=== PATIENT | female | born 1995 | race African-American/Black ===

== ENCOUNTER 2019-08-16 23:36 | Emergency (ER) | payer OTHER ==
[~2019-08-16] VITALS: Ht 154.9 cm; Wt 77.1 kg
[2019-08-17 00:12] VITALS: BP 127/80
--- NOTE | 2019-08-17 00:14 | NUR ---
ED Nurse Note: Patient walked in to ER c/o lower back, and abdomen pain. AAO x4, VSS at this thime. Urine colected sent down.
[2019-08-17] MEDS ORDERED: Phenazopyridine 200mg tab ORAL ONE (00:15)
--- NOTE | 2019-08-17 00:17 | Emergency Room Report ---
History of Present Illness General Chief Complaint: Female Urogenital Problems Source: Patient Present Illness HPI Patient is a 24-year-old female who presents after increased dysuria as well as urinary frequency. She denies any recent antibiotic use. She not been having a fever. She denies any discharge. She had normal menses approximately 2 weeks ago. She had not been taking antibiotics recently. No episodes of vomiting or diarrhea. She denies any flank pain. Allergies: Uncoded Allergies: PINEAPPLES (Allergy, Severe, 08/16/19) TONGUE SWELLING Patient History Past Medical History: see triage record Last Menstrual Period: 08-07-2019 Now: No Reviewed Nursing Documentation: PMH: Agreed; PSxH: Agreed Nursing Documentation-PMH Past Medical History: No Stated History Review of Systems All Other Systems: negative except mentioned in HPI Physical Exam Vital Signs Date Time Temp Pulse Resp B/P (MAP) Pulse Ox O2 Delivery O2 Flow Rate FiO2 08/16/19 23:53 98.2 80 16 127/80 (96) 97 Room Air General Appearance: well appearing, no apparent distress, alert, GCS 15 Head: normocephalic, atraumatic ENT: hearing grossly normal, normal voice Neck: full range of motion, supple Respiratory: normal inspection, lungs clear, normal breath sounds, no rhonchi, no respiratory distress, speaking full sentences Cardiovascular #1: normal inspection, no edema Gastrointestinal: normal inspection, non tender, soft, no mass Genitourinary: no CVA tenderness Musculoskeletal: no calf tenderness Neurologic: normal inspection, alert, oriented x3, responsive, normal gait Psychiatric: normal inspection, mood/affect normal Skin: no rash Medical Decision Making Diagnostic Impression: Primary Impression: Urinary tract infection ER Course Patient is a 24-year-old female presents for increased dysuria. Differential diagnosis include was not limited to urinary tract infection, pyelonephritis, among others. Patient has a benign exam and does not appear to require any imaging or laboratory testing at this time. Patient does not appear to have any evidence of systemic illness at this time. Urinary infection was noted on the urinary testing. Patient states she is recently had a battery of STD testing which is negative. Patient was advised to return if any worsening of condition or other concerns. Labs Test 08/17/19 00:07 Urine Color Brown Urine Appearance Slightly cloudy Urine pH 7 (4.5-8.0) Urine Specific [place] 1.005 (1.005-1.035) Urine Protein 1+ (NEGATIVE) Urine Glucose (UA) Negative (NEGATIVE) Urine Ketones Negative (NEGATIVE) Urine Blood 2+ (NEGATIVE) Urine Nitrite Positive (NEGATIVE) Urine Bilirubin 1+ (NEGATIVE) Urine Ictotest Negative (NEGATIVE) Urine Urobilinogen 4 MG/DL (0.0-1.0) Urine Leukocyte Esterase 2+ (NEGATIVE) Urine RBC 5-10 /HPF (0 - 2) Urine WBC 60-80 /HPF (0 - 2) Urine Squamous Epithelial Cells Many /LPF (NONE/OCC) Urine Bacteria Few /HPF (NONE) Urine HCG, Qualitative Negative (NEGATIVE) Last Vital Signs Date Time Temp Pulse Resp B/P (MAP) Pulse Ox O2 Delivery O2 Flow Rate FiO2 08/17/19 00:12 98.2 16 127/80 97 Room Air 08/16/19 23:53 80 Status: improved Disposition: HOME, SELF-CARE Condition: Stable Scripts Phenazopyridine Hcl* (PYRIDIUM*) 200 Mg Tablet 200 MG ORAL THREE TIMES A DAY, #14 TAB 0 Refills Prov: Colby Cage MD 08/17/19 Nitrofurantoin Monohyd/M-Cryst* (MACROBID 100 MG*) 100 Mg Capsule 100 MG ORAL EVERY 12 HOURS, #14 CAP Prov: Colby Cage MD 08/17/19 Referrals: SCOTTY GRIJALVA,REFERRING (PCP) Colby Cage MD Aug 17, 2019 00:17
[2019-08-17 00:18] LABS: APPEARANCE,URINE SLIGHTLY CLOUDY; BILIRUBIN, URINE 1+ (NEGATIVE); COLOR,URINE BROWN; GLUCOSE, URINE (UA) NEGATIVE (NEGATIVE); KETONES,URINE NEGATIVE (NEGATIVE); LEUKOCYTE ESTERASE ,URINE 2+ (NEGATIVE); NITRITE,URINE POSITIVE (NEGATIVE); PH,URINE 7 (4.5-8.0); PROTEIN,URINE 1+ (NEGATIVE); UROBILINOGEN,URINE 4 MG/DL (0.0-1.0)
[2019-08-17] MEDS ORDERED: PHENAZOPYRIDIN200 MG ORAL (00:43)
[2019-08-17] MEDS ORDERED: NITROFURANTOIN100 M2 ORAL (00:43)
[2019-08-17 00:52] VITALS: BP 127/80
--- NOTE | 2019-08-17 00:53 | NUR ---
ED Nurse Note: Pt cleared by health care Provider for discharge. DC instructions/prescription was given and explained to pt and verbalized understanding of teachings. All medical deviecs such as ID band removed. Pt is AAO x4, ambulatory and left with all personal belongings.
== END 2019-08-17 00:53 | disposition home or self-care (01) ==
LOC: EMR 08-17 00:10
DX: N39.0 Urinary tract infection, site not specified (principal); Z91.018 Allergy to other foods
CPT/HCPCS: 81003; 81025; 87086; 87181; 99283

== ENCOUNTER 2019-09-17 03:36 | Emergency (ER) | payer BC, OTHER ==
[~2019-09-17] VITALS: Ht 154.9 cm; Wt 74.8 kg
[~2019-09-17 03:36] MED LIST: NITROFURANTOIN100 M2 ORAL; PHENAZOPYRIDIN200 MG ORAL
--- NOTE | 2019-09-17 03:54 | Emergency Room Report ---
History of Present Illness General Chief Complaint: Lower Extremity Injury Source: Patient Present Illness HPI This is a 24-year-old female with no past medical history. She presents with chief complaint of left great toe pain. She said that 2 days ago she was playing around with somebody and that person fell and hit his knee directly onto her great toe. There was bleeding. Now it is throbbing in nature. Still hurting. There is some drainage. Pain is 8 out of 10. Worse with walking and palpation. Better with rest. No fever chills. No nausea no vomiting. Denies any other complaint. No other injury. Allergies: Uncoded Allergies: PINEAPPLES (Allergy, Severe, 08/16/19) TONGUE SWELLING Patient History Past Medical History: see triage record, old chart reviewed Past Surgical History: none Pertinent Family History: none Social History: Denies: smoking Last Menstrual Period: 09/03/2019 Now: No Immunizations: other Reviewed Nursing Documentation: PMH: Agreed; PSxH: Agreed Nursing Documentation-PMH Past Medical History: No Stated History Hx Cardiac Problems: No Hx Hypertension: No Hx Pacemaker: No Hx Asthma: No Hx COPD: No Hx Diabetes: No Hx Cancer: No Hx Gastrointestinal Problems: No Hx Dialysis: No History Of Psychiatric Problem: No Hx Neurological Problems: No Hx Cerebrovascular Accident: No Hx Seizures: No Review of Systems Eye: Denies: eye pain, blurred vision ENT: Denies: ear pain, nose congestion, throat swelling Respiratory: Denies: cough, shortness of breath Cardiovascular: Denies: chest pain, palpitations Gastrointestinal: Denies: abdominal pain, diarrhea, nausea, vomiting Musculoskeletal: Reports: joint pain; Denies: back pain Skin: Denies: rash Neurological: Denies: headache, numbness Endocrine: Denies: increased thirst, increased urine Hematologic/Lymphatic: Denies: easy bruising All Other Systems: negative except mentioned in HPI Physical Exam Vital Signs Date Time Temp Pulse Resp B/P (MAP) Pulse Ox O2 Delivery O2 Flow Rate FiO2 09/17/19 03:38 97.7 90 20 124/79 (94) 97 Room Air Vitals normal Sp02 EP Interpretation: reviewed, normal General Appearance: well appearing, no apparent distress, alert Head: normocephalic, atraumatic Eyes: bilateral eye PERRL, bilateral eye EOMI ENT: hearing grossly normal, normal pharynx Neck: full range of motion, supple, no meningismus Respiratory: chest non-tender, lungs clear, normal breath sounds Cardiovascular #1: regular rate, rhythm, no murmur Gastrointestinal: normal bowel sounds, non tender, no mass, no organomegaly, no bruit, non-distended Musculoskeletal: back normal, normal range of motion, gait/station normal, other - Left great toe: She has acrylic nails on. At the base there is a old abrasion or laceration. There is some edema. Very tender to palpation. There is serous sanguinous drainage. Psychiatric: mood/affect normal Medical Decision Making Diagnostic Impression: Primary Impression: Crushing injury of toe of left foot Qualified Codes: S97.102A - Crushing injury of unspecified left toe(s), initial encounter ER Course Patient presents with crush injury to the great toe. I suspect that she has nailbed injury because of the bleeding and pain. No fracture. Because of the site, will put on antibiotics. Will discharge home. Other X-Ray Diagnostic Results Other X-Ray Diagnostic Results : X-Ray ordered: Left toe x-rays # of Views/Limited Vs Complete: 3 View Indication: Pain EP Interpretation: Yes Interpretation: no dislocation, no soft tissue swelling, no fractures Impression: No acute disease Electronically Signed by: Rigoberto Garza MD Last Vital Signs Date Time Temp Pulse Resp B/P (MAP) Pulse Ox O2 Delivery O2 Flow Rate FiO2 09/17/19 03:38 97.7 90 20 124/79 (94) 97 Room Air Status: improved Disposition: HOME, SELF-CARE Condition: Stable Scripts Ibuprofen* (MOTRIN*) 600 Mg Tablet 600 MG ORAL THREE TIMES A DAY, #30 TAB 0 Refills Prov: Rigoberto Garza MD 09/17/19 Doxycycline Monohydrate* (DOXYCYCLINE MONOHYDRATE*) 100 Mg Capsule 100 MG ORAL Q12H, #14 CAP 0 Refills Prov: Rigoberto Garza MD 09/17/19 Additional Instructions: Elevate foot. Ice pack to area. Keep it clean. Follow-up with doctor in 7 days. Return if worse. Rigoberto Garza MD Sep 17, 2019 03:54
[2019-09-17] MEDS ORDERED: HYDROcodone/Acetamin 5/325 tab ORAL ONE (04:00)
[2019-09-17] MEDS ORDERED: IBUPROFEN600 MG ORAL (04:21)
[2019-09-17] MEDS ORDERED: DOXYCYCLINE MO100 MG ORAL (04:21)
[2019-09-17 04:25] VITALS: BP 120/84
--- NOTE | 2019-09-17 11:42 | Diagnostic Imaging Report ---
Indication: Pain in distal left great toe after trauma Technique: 3 views of the left great toe Comparison: none Findings: No acute fractures. No dislocations. Joint spaces are preserved. Impression: Negative
== END 2019-09-17 04:25 | disposition home or self-care (01) ==
LOC: EMR 03:59
DX: S97.102A Crushing injury of unspecified left toe(s), initial encounter (principal); Y93.83 Activity, rough housing and horseplay
CPT/HCPCS: 99283

== ENCOUNTER → 2019-10-14 | Emergency (ER) | payer BC, OTHER ==
[~2019-10-14] VITALS: Ht 154.9 cm; Wt 77.1 kg
[~2019-10-14] MED LIST changes: +CEPHALEXIN500 MG ORAL; +DOXYCYCLINE MO100 MG ORAL; +IBUPROFEN600 MG ORAL; +PRENATAL VITAM1 EA10 PO; +TYLENOL EXTRA500 MG ORAL
[2019-10-14 17:39] VITALS: BP 107/74
--- NOTE | 2019-10-14 17:45 | NUR ---
ED Nurse Note: pt. ambulated to ed came with abscess on her tail bone for 2 days with 10/10 pain scale. Pt denied bleeding on site. Placed on bed and gown.
--- NOTE | 2019-10-14 17:50 | Emergency Room Report ---
History of Present Illness General Chief Complaint: Skin Rash/Abscess Source: Patient Present Illness HPI 24-year-old female with no significant past medical history who reports being 6 weeks with no abdominal pain, no vaginal discharge or bleeding here complaining of a semi-painful mass perianal area x3 days. Denies any pus drainage, rating pain 5 out of 10 without radiation. Denies fever and chills at this time. Denies constipation, blood in stool, and other associated symptoms. Has not taken medication for symptom relief. Denies chest pain, shortness of breath, palpitation, no other associated symptoms. Reports that has an upcoming appointment with LIVING SKILLS ADVISOR next week. Has not yet started her vitamins that she just found out that she is 6 weeks . Denies tobacco smoke, alcohol intake. Allergies: Uncoded Allergies: PINEAPPLES (Allergy, Severe, 08/16/19) TONGUE SWELLING Patient History Past Medical History: see triage record Past Surgical History: unable to obtain Pertinent Family History: none Now: Yes Immunizations: UTD Reviewed Nursing Documentation: PMH: Agreed; PSxH: Agreed Nursing Documentation-PMH Past Medical History: No History, Except For Hx Cardiac Problems: No Hx Hypertension: No Hx Pacemaker: No Hx Asthma: Yes Hx COPD: No Hx Diabetes: No Hx Cancer: No Hx Gastrointestinal Problems: No Hx Dialysis: No Hx Neurological Problems: No Hx Cerebrovascular Accident: No Hx Seizures: No Review of Systems All Other Systems: negative except mentioned in HPI Physical Exam Vital Signs Date Time Temp Pulse Resp B/P (MAP) Pulse Ox O2 Delivery O2 Flow Rate FiO2 10/14/19 17:30 98.1 80 17 106/74 (85) 99 Room Air Sp02 EP Interpretation: reviewed, normal General Appearance: no apparent distress, alert, GCS 15, non-toxic Head: normocephalic, atraumatic Eyes: bilateral eye normal inspection, bilateral eye PERRL ENT: hearing grossly normal, normal pharynx, no angioedema, normal voice Neck: full range of motion, supple, thyroid normal, no meningismus, supple/symm /no masses Respiratory: chest non-tender, lungs clear, normal breath sounds, no rhonchi, no retraction, no wheezing, speaking full sentences Cardiovascular #1: regular rate, rhythm, no edema, no murmur Gastrointestinal: normal bowel sounds, non tender, soft, no mass, non-distended , no guarding, no rebound Rectal: other - Tam cyst noted without any pus drainage, hardened Genitourinary: no CVA tenderness Musculoskeletal: back normal Neurologic: alert, motor strength/tone normal, oriented x3, sensory intact, responsive, speech normal Psychiatric: judgement/insight normal Skin: no rash Lymphatic: no adenopathy Medical Decision Making PA Attestation All diagnoses and treatment plans were reviewed and discussed with my supervising physician Dr. Du Diagnostic Impression: Primary Impression: Pilonidal cyst Additional Impression: ER Course 24-year-old female with no significant past medical history who reports being 6 weeks with no abdominal pain, no vaginal discharge or bleeding here complaining of a semi-painful mass perianal area x3 days. Denies any pus drainage, rating pain 5 out of 10 without radiation. Denies fever and chills at this time. Denies constipation, blood in stool, and other associated symptoms. Has not taken medication for symptom relief. Denies chest pain, shortness of breath, palpitation, no other associated symptoms. Reports that has an upcoming appointment with LIVING SKILLS ADVISOR next week. Has not yet started her vitamins that she just found out that she is 6 weeks . Denies tobacco smoke, alcohol intake. Ddx considered but are not limited to : pilonidal cyst, abscess, cellulitis, superficial infection, Vital signs: are WNL, pt. is afebrile H&PE are most consistent with: Pilonidal cyst ORDERS: Keflex, Tylenol ED INTERVENTIONS: None required at this time. DISCHARGE: At this time pt. is stable for d/c to home. Will provide printed patient care instructions, and any necessary prescriptions. Care plan and follow up instructions have been discussed with the patient prior to discharge. At this time no incision and drainage is needed as it is a small cyst and to be treated with antibiotics which is safe to take during and Tylenol. Advised patient to return to the emergency room with fever and chills, increase in size of the cyst as well as pus drainage. Patient to follow-up with LIVING SKILLS ADVISOR. I wrote a prescription for vitamins for patient to start. Last Vital Signs Date Time Temp Pulse Resp B/P (MAP) Pulse Ox O2 Delivery O2 Flow Rate FiO2 10/14/19 17:39 98.1 68 20 107/74 99 Room Air Disposition: HOME, SELF-CARE Condition: Stable Scripts No.137/Iron/Folic Acd ( Vitamin Tablet) 1 Each Tablet 1 EACH PO DAILY, #30 TAB Prov: Denver Lawton 10/14/19 Acetaminophen* (TYLENOL EXTRA STRENGTH*) 500 Mg Tablet 2 TAB ORAL Q8H PRN for Prn Headache/Temp > 101, #30 TAB 0 Refills Prov: Denver Lawton 10/14/19 Cephalexin* (KEFLEX*) 500 Mg Capsule 500 MG ORAL EVERY 6 HOURS for 7 Days, #28 CAP Prov: Denver Lawton 10/14/19 Patient Instructions: Pilonidal Cyst Additional Instructions: Take medication as directed, at this time the cyst does not need to be drained as it is hard and small antibiotic should be taking, avoid straining, if worsening symptoms such as increased swelling in the area, pus drainage return to the emergency room for incision and incision and drainage of the abscess formation. Start taking her vitamins, follow-up with your LIVING SKILLS ADVISOR Denver Lawton Oct 14, 2019 17:50
[2019-10-14 17:56] VITALS: BP 107/74
--- NOTE | 2019-10-14 17:56 | NUR ---
ER DISCHARGE NOTE: Pt is cleared to be discharge per ERMD,. Pt is AOx4, on RA, VSS. pt was given dc and prescription instructions, pt was able to verbalize understanding, pt id band removed. pt is able to ambulate with steady gait. Pt left ER with all belongings.
== END | disposition home or self-care (01) ==
LOC: EMR 17:45
DX: O26.891 Other specified pregnancy related conditions, first trimester (principal); L05.91 Pilonidal cyst without abscess; Z3A.01 Less than 8 weeks gestation of pregnancy; Z91.018 Allergy to other foods
CPT/HCPCS: 99282

== ENCOUNTER 2019-11-12 02:34 | Inpatient (IN) | payer BC, OTHER ==
[~2019-11-12] VITALS: Ht 154.9 cm; Wt 81.6 kg
[2019-11-12] VITALS (7 sets, daily range): BP systolic 103–134; BP diastolic 56–90
[2019-11-12] MEDS ORDERED: Morphine Sulfate 2mg/ml Inj(IV/IM USE ONLY) IVP ONE (03:15)
--- NOTE | 2019-11-12 03:15 | NUR ---
ER Nurse Note: Pt walked in c/o stomach pain, n/v/d, for few days. Pt stated she had an etopic pregnany and now she is having blood clots. Pt denies chest pain, shortness of breath. RT AC IV established by second RN; patent and blood collected. Pt unable to urinate; will ask again. All safety measures met; will continue to montior.
--- NOTE | 2019-11-12 03:15 | Emergency Room Report ---
History of Present Illness General Chief Complaint: Abdominal Pain Source: Patient Present Illness HPI Disclaimer: Please note that this report is being documented using DRAGON technology. This can lead to erroneous entry secondary to incorrect interpretation by the dictating instrument. HPI: 24-year-old G1, P0 female presents for evaluation abdominal pain and bleeding. Symptoms began yesterday. She states last week she was seen her OB/ [facility]SP[facility]ER VENDOR when diagnosed with a blighted ovum . She was scheduled to return 1 week later (tomorrow) for reevaluation and repeat blood testing. Yesterday afternoon she noted some spotting which developed into lower pelvic cramping and now diffuse abdominal bleeding. She denies lightheadedness, chest pain, shortness of breath or near syncope. No other medical history reported. Denies dysuria hematuria, fever, chest pain, shortness of breath, vomiting. Reports some diarrhea. PMH: Denies PSH: Denies Allergies: Denies Social Hx: Denies Allergies: Uncoded Allergies: PINEAPPLES (Allergy, Severe, 08/16/19) TONGUE SWELLING Patient History Now: No Nursing Documentation-PMH Hx Cardiac Problems: No Hx Hypertension: No Hx Pacemaker: No Hx Asthma: Yes Hx COPD: No Hx Diabetes: No Hx Cancer: No Hx Gastrointestinal Problems: No Hx Dialysis: No Hx Neurological Problems: No Hx Cerebrovascular Accident: No Hx Seizures: No Review of Systems All Other Systems: negative except mentioned in HPI Physical Exam Vital Signs Date Time Temp Pulse Resp B/P (MAP) Pulse Ox O2 Delivery O2 Flow Rate FiO2 11/12/19 02:55 97.7 86 18 113/73 (86) 96 Room Air General: Awake and alert, no acute distress HEENT: NC/AT. EOMI. Cardiovascular: RRR. S1 and S2 normal. No murmur appreciated Resp: Normal work of breathing. No cough, wheezing or crackles appreciated Abdomen: Abdomen is soft, nondistended. Tender palpation in the lower pelvis and suprapubic region Skin: Intact. No abrasions, laceration or rash over the exposed skin MSK: Normal tone and bulk. Moving all extremities. No obvious deformity. Neuro: Awake and alert. Mentating appropriately. Medical Decision Making Diagnostic Impression: Primary Impression: Inevitable ER Course 24-year-old G1, P0 female presents for evaluation of possible miscarriage planing of vaginal bleeding and worsening abdominal pain in the setting of a blighted ovum . She appears stable at this time but will obtain broad labs including type and screen and possible transfusion. Will obtain an ultrasound of the pelvis. IV fluids, pain medication, antiemetics ordered Laboratory Tests Test 11/12/19 04:14 White Blood Count 7.3 K/UL (4.8-10.8) Red Blood Count 4.61 M/UL (4.20-5.40) Hemoglobin 12.2 G/DL (12.0-16.0) Hematocrit 36.9 % (37.0-47.0) L Mean Corpuscular Volume 80 FL (80-99) Mean Corpuscular Hemoglobin 26.5 PG (27.0-31.0) L Mean Corpuscular Hemoglobin Concent 33.1 G/DL (32.0-36.0) Red Cell Distribution Width 12.4 % (11.6-14.8) Platelet Count 292 K/UL (150-450) Mean Platelet Volume 8.2 FL (6.5-10.1) Neutrophils (%) (Auto) 59.9 % (45.0-75.0) Lymphocytes (%) (Auto) 28.2 % (20.0-45.0) Monocytes (%) (Auto) 7.7 % (1.0-10.0) Eosinophils (%) (Auto) 3.5 % (0.0-3.0) H Basophils (%) (Auto) 0.8 % (0.0-2.0) Sodium Level 138 MMOL/L (136-145) Potassium Level 3.9 MMOL/L (3.5-5.1) Chloride Level 104 MMOL/L (98-107) Carbon Dioxide Level 23 MMOL/L (21-32) Anion Gap 11 mmol/L (5-15) Blood Urea Nitrogen 11 mg/dL (7-18) Creatinine 0.7 MG/DL (0.55-1.30) Estimate Glomerular Filtration Rate > 60 mL/min (>60) Glucose Level 98 MG/DL (74-106) Calcium Level 8.9 MG/DL (8.5-10.1) Total Bilirubin 0.1 MG/DL (0.2-1.0) L Aspartate Amino Transferase (AST) 17 U/L (15-37) Alanine Aminotransferase (ALT) 23 U/L (12-78) Alkaline Phosphatase 66 U/L (46-116) Total Protein 8.4 G/DL (6.4-8.2) H Albumin 3.3 G/DL (3.4-5.0) L Globulin 5.1 g/dL Albumin/Globulin Ratio 0.6 (1.0-2.7) L Lipase 147 U/L (73-393) Human Chorionic Gonadotropin, Quant 4792 mIU/mL (1-6) H Reevaluation Time: 05:50 Last Vital Signs Date Time Temp Pulse Resp B/P (MAP) Pulse Ox O2 Delivery O2 Flow Rate FiO2 11/12/19 02:55 97.7 86 18 113/73 (86) 96 Room Air Reevaluation Impression Labs show stable hemoglobin at 12.2 with normal MCV. Chemistry unremarkable. hCG quant 4700. No prior for comparison. Urinalysis pending. Patient underwent ultrasound. Tech interpretation showed no gestational sac but reported trace products of conception that appear to be passing. Consistent with ongoing spontaneous . Preliminary radiology interpretation shows no intrauterine or retained products of conception and trace fluid in the lower uterine endometrial cavity likely representing clot versus debris. Patient was noted to have ongoing bleeding during the exam and felt lightheaded. We will continue IV fluids. She is complaining of increased pain. Will provide more pain medication. Patient is Rh negative. Will give RhoGam and monitor in the emergency department for improvement. If there is no significant improvement plan to admit. Signed out to oncoming provider pending RhoGam administration and reevaluation. Disposition: ADMITTED INPATIENT Condition: Serious Referrals: NOT CHOSEN IPA/,REFERRING (PCP) Dennys Du MD Nov 12, 2019 03:15
[2019-11-12 04:13] LABS: BILIRUBIN, URINE NEGATIVE (NEGATIVE); GLUCOSE, URINE (UA) NEGATIVE (NEGATIVE); LEUKOCYTE ESTERASE ,URINE NEGATIVE (NEGATIVE); NITRITE,URINE NEGATIVE (NEGATIVE); UROBILINOGEN,URINE NORMAL MG/DL (0.0-1.0)
[2019-11-12 04:23] LABS: BASOPHILS % (AUTO) 0.8 % (0.0-2.0); EOSINOPHILS % (AUTO) 3.5 % (0.0-3.0); HEMATOCRIT 36.9 % (37.0-47.0); HEMOGLOBIN 12.2 G/DL (12.0-16.0); LYMPHOCYTES % (AUTO) 28.2 % (20.0-45.0); MEAN CORPUSCULAR VOLUME 80 FL (80-99); MONOCYTES % (AUTO) 7.7 % (1.0-10.0); NEUTROPHILS % (AUTO) 59.9 % (45.0-75.0); PLATELET COUNT 292 K/UL (150-450); RED BLOOD COUNT 4.61 M/UL (4.20-5.40); RED CELL DISTRIBUTION WIDTH 12.4 % (11.6-14.8); WHITE BLOOD COUNT 7.3 K/UL (4.8-10.8)
[2019-11-12 04:25] LABS: ANION GAP 11 mmol/L (5-15); BLOOD UREA NITROGEN 11 mg/dL (7-18); CALCIUM 8.9 MG/DL (8.5-10.1); CARBON DIOXIDE 23 MMOL/L (21-32); CHLORIDE 104 MMOL/L (98-107); CREATININE 0.7 MG/DL (0.55-1.30); POTASSIUM 3.9 MMOL/L (3.5-5.1); SODIUM 138 MMOL/L (136-145)
[2019-11-12 04:30] LABS: ALANINE AMINOTRANSFERASE 23 U/L (12-78); ALBUMIN 3.3 G/DL (3.4-5.0); ALBUMIN/GLOBULIN RATIO 0.6 (1.0-2.7); ALKALINE PHOSPHATASE 66 U/L (46-116); ASPARTATE AMINO TRANSFERASE 17 U/L (15-37); BILIRUBIN,TOTAL 0.1 MG/DL (0.2-1.0)
--- NOTE | 2019-11-12 05:18 | NUR ---
ER Nurse Note: Pt VSS, no signs of distress, RA, abulatory. Pt taken to US.
--- NOTE | 2019-11-12 05:22 | Diagnostic Imaging Report ---
Indication: Pelvic bleeding, pelvic pain, patient Technique: Transabdominal and transvaginal images of the pelvis. Exam prematurely terminated due to patient pain Comparison: none Findings: Uterus measures 9.8 cm length by 5.3 cm AP. The endometrium is somewhat heterogeneous and thickened, with some hypoechoic material in the lower uterine segment endometrium, but no discrete gestational sac is demonstrated. The myometrium is unremarkable. Neither ovary could be visualized. No free cul-de-sac fluid Impression: No gestational sac demonstrated. Endometrial thickening and heterogeneously could indicate normal findings versus retained products of conception in the setting of spontaneous . Other possibilities include very early , ectopic Limited exam, as described This agrees with the preliminary interpretation provided overnight by [facility] teleradiology service.
[2019-11-12] MEDS ORDERED: Morphine Sulfate 4mg/ml Inj (IV USE ONLY) IVP ONE (06:00)
[2019-11-12] MEDS ORDERED: RHO (D) Immune Globulin 1500 Units IV SCH (06:00)
[2019-11-12 06:02] LABS: COLOR,URINE RED; KETONES,URINE NEGATIVE (NEGATIVE); PH,URINE 7 (4.5-8.0); PROTEIN,URINE 4+ (NEGATIVE)
[2019-11-12 06:05] LABS: APPEARANCE,URINE TURBID
--- NOTE | 2019-11-12 06:06 | NUR ---
ER Nurse Note: Urine sent; awaiting results. Morphine given for pain. Fluids infusing; tolerating well. Spoke with Leanne at pipeline for RhoGam, RhoGam is not in pxyis. Per ERMD, it is okay to wait until main pharmacy is open for med to be administed. Report given to ORLIN Story for continuty of care.
--- NOTE | 2019-11-12 07:09 | NUR ---
HAND-OFF: Report given to ORLIN Kaur.
--- NOTE | 2019-11-12 07:12 | NUR ---
ED Nurse Note: Blood bank called and no answered. Will contact again.
[2019-11-12] MEDS ORDERED: RHO (D) Immune Globulin 1500 Units IM ONE (07:45)
--- NOTE | 2019-11-12 07:54 | NUR ---
ED Nurse Note: Spoke to Lacy from lab, she said she will call ED when rhogam is ready.
--- NOTE | 2019-11-12 08:10 | NUR ---
ED Nurse Note: Pt is Rh +. ERMD made aware. no Rhogam is needed at this time. PT made aware.
[2019-11-12] MEDS ORDERED: Ketorolac 30mg Inj ONE (08:13)
[2019-11-12] MEDS ORDERED: Ketorolac 30mg Inj IV ONE (08:15)
--- NOTE | 2019-11-12 08:50 | NUR ---
ED Nurse Note: pelvic exam being performed at bedside by ERMD and RN at bedside.
[2019-11-12] MEDS ORDERED: Misoprostol 100mcg tab MISC ONE (09:45)
--- NOTE | 2019-11-12 11:20 | NUR ---
ED Nurse Note: report given to ORLIN Joshi from Med/Surg
--- NOTE | 2019-11-12 11:50 | NUR ---
ED Nurse Note: PT brought up to MED/SURG floor accompanied by office machine technician in stable condition. IV site intact (R AC) . Belonging list signed off
--- NOTE | 2019-11-12 11:59 | NUR ---
NURSE NOTES: Patient arrived on floor, AOX4. IV intact and patent. Patient belonging inventoried and signed.
--- NOTE | 2019-11-12 12:32 | NUR ---
NURSE NOTES: Call placed to Dr Millard for admission orders, awaiting return call.
--- NOTE | 2019-11-12 13:04 | NUR ---
NURSE NOTES: Message left with MD Faustin for admission orders.
--- NOTE | 2019-11-12 14:31 | Consultation ---
History of Present Illness General Chief Complaint: Abdominal Pain Present Illness Allergies: Uncoded Allergies: PINEAPPLES (Allergy, Severe, 08/16/19) TONGUE SWELLING Medication History Scheduled Cephalexin* (Keflex*), 500 MG ORAL EVERY 6 HOURS Doxycycline Monohydrate* (Doxycycline Monohydrate*), 100 MG ORAL Q12H Ibuprofen* (Motrin*), 600 MG ORAL THREE TIMES A DAY Nitrofurantoin Monohyd/M-Cryst* (Macrobid 100 Mg*), 100 MG ORAL EVERY 12 HOURS Phenazopyridine Hcl* (Pyridium*), 200 MG ORAL THREE TIMES A DAY No.137/Iron/Folic Acd ( Vitamin Tablet), 1 EACH PO DAILY Scheduled PRN Acetaminophen* (Tylenol Extra Strength*), 2 TAB ORAL Q8H PRN for Prn Headache/ Temp > 101 Patient History Healthcare decision maker Resuscitation status Full Code Advanced Directive on File Physical Exam Last 24 Hour Vital Signs Date Time Temp Pulse Resp B/P (MAP) Pulse Ox O2 Delivery O2 Flow Rate FiO2 11/12/19 13:27 97.7 75 20 103/66 (78) 96 11/12/19 12:35 Room Air 11/12/19 11:58 98.0 86 19 116/63 98 Room Air 11/12/19 10:15 97.9 81 19 108/70 98 Room Air 11/12/19 07:41 98.0 85 17 112/70 97 Room Air 11/12/19 05:17 97.7 82 16 118/70 97 Room Air 11/12/19 03:53 97.7 11/12/19 03:13 97.7 86 18 113/73 96 Room Air 11/12/19 03:13 86 18 Room Air 11/12/19 02:55 97.7 86 18 113/73 (86) 96 Room Air Intake and Output 11/11/19 11/12/19 19:00 07:00 Intake Total 2000 ml Balance 2000 ml IV Total 2000 ml Laboratory Tests Test 11/12/19 04:14 11/12/19 05:55 White Blood Count 7.3 K/UL (4.8-10.8) Red Blood Count 4.61 M/UL (4.20-5.40) Hemoglobin 12.2 G/DL (12.0-16.0) Hematocrit 36.9 % (37.0-47.0) L Mean Corpuscular Volume 80 FL (80-99) Mean Corpuscular Hemoglobin 26.5 PG (27.0-31.0) L Mean Corpuscular Hemoglobin Concent 33.1 G/DL (32.0-36.0) Red Cell Distribution Width 12.4 % (11.6-14.8) Platelet Count 292 K/UL (150-450) Mean Platelet Volume 8.2 FL (6.5-10.1) Neutrophils (%) (Auto) 59.9 % (45.0-75.0) Lymphocytes (%) (Auto) 28.2 % (20.0-45.0) Monocytes (%) (Auto) 7.7 % (1.0-10.0) Eosinophils (%) (Auto) 3.5 % (0.0-3.0) H Basophils (%) (Auto) 0.8 % (0.0-2.0) Sodium Level 138 MMOL/L (136-145) Potassium Level 3.9 MMOL/L (3.5-5.1) Chloride Level 104 MMOL/L (98-107) Carbon Dioxide Level 23 MMOL/L (21-32) Anion Gap 11 mmol/L (5-15) Blood Urea Nitrogen 11 mg/dL (7-18) Creatinine 0.7 MG/DL (0.55-1.30) Estimat Glomerular Filtration Rate > 60 mL/min (>60) Glucose Level 98 MG/DL (74-106) Calcium Level 8.9 MG/DL (8.5-10.1) Total Bilirubin 0.1 MG/DL (0.2-1.0) L Aspartate Amino Transf (AST/SGOT) 17 U/L (15-37) Alanine Aminotransferase (ALT/SGPT) 23 U/L (12-78) Alkaline Phosphatase 66 U/L (46-116) Total Protein 8.4 G/DL (6.4-8.2) H Albumin 3.3 G/DL (3.4-5.0) L Globulin 5.1 g/dL Albumin/Globulin Ratio 0.6 (1.0-2.7) L Lipase 147 U/L (73-393) Human Chorionic Gonadotropin, Quant 4792 mIU/mL (1-6) H Urine Color Red Urine Appearance Turbid Urine pH 7 (4.5-8.0) Urine Specific Rayle 1.010 (1.005-1.035) Urine Protein 4+ (NEGATIVE) H Urine Glucose (UA) Negative (NEGATIVE) Urine Ketones Negative (NEGATIVE) Urine Blood 5+ (NEGATIVE) H Urine Nitrite Negative (NEGATIVE) Urine Bilirubin Negative (NEGATIVE) Urine Urobilinogen Normal MG/DL (0.0-1.0) Urine Leukocyte Esterase Negative (NEGATIVE) Urine RBC Tntc /HPF (0 - 2) H Urine WBC 0-2 /HPF (0 - 2) Urine Squamous Epithelial Cells None /LPF (NONE/OCC) Urine Bacteria Few /HPF (NONE) Height (Feet): 5 Height (Inches): 1.00 Weight (Pounds): 173 Medications Current Medications Medications (Trade) Dose Ordered Sig/Jozef Route PRN Reason Start Time Stop Time Status Last Admin Dose Admin Acetaminophen (Tylenol) 650 mg Q4H PRN ORAL Mild Pain/Temp > 100.5 11/12/19 14:00 12/12/19 13:59 Assessment/Plan Assessment/Plan: Hematology Consultation REAlberto MD: Nenita Aggarwal RFC: Anemia and incomplete miscarriage DOS: 11/13/2019 ID: 24-year-old G1, P0 female presents for evaluation abdominal pain and bleeding. Symptoms began yesterday. 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 She was scheduled to return 1 week later (tomorrow) for reevaluation and repeat blood testing. Yesterday afternoon she noted some spotting which developed into lower pelvic cramping and now diffuse abdominal bleeding. She denies lightheadedness, chest pain, shortness of breath or near syncope. No other medical history reported. Denies dysuria hematuria, fever, chest pain, shortness of breath, vomiting. Reports some diarrhea. Seen by Dr. Scott urogynecology physician, and patient at this time declines further management PMH: Denies PSH: Denies Allergies: Denies Social Hx: Denies Allergies: PINEAPPLES (Allergy, Severe, 08/16/19) TONGUE SWELLING Now: No Nursing Documentation-PMH Hx Cardiac Problems: No Hx Hypertension: No Hx Pacemaker: No Hx Asthma: Yes Hx COPD: No Hx Diabetes: No Hx Cancer: No Hx Gastrointestinal Problems: No Hx Dialysis: No Hx Neurological Problems: No Hx Cerebrovascular Accident: No Hx Seizures: No ROS: Constitutional: No fever, no chills, no night sweats, no fatigue Skin: No rashes, lumps, itchiness, dryness HEENT: No GUIDRY, ear ache, visual changes, double vision, nosebleeds, sore throat, lumps, swollen glands Breasts: No lumps, pain, discharge Pulmonary: No cough, sputum, shortness of breath, coughing up blood, hemoptysis Cardiovascular: No chest pain, tightness, palpitations, syncope, claudication, orthopnea, PND GI: No nausea, vomiting, diarrhea, melena, hematochezia, change in appetite, abdominal pain : No dysuria, frequency, urgency, urinary incontinence, foamy urine Musculoskeletal: No joint swelling or muscle pain, trauma, back pain Neurologic: No dizziness, fainting, seizures, changes in smell or taste Psychiatric: No nervousness, stress, or depression, anxiety, hallucinations Endocrine: No weight change, heat or cold intolerance, tremor, insomnia Physical Exam General Appearance: A+O x3, NAD HEENT: normocephalic, atraumatic Neck: non-tender, normal alignment Respiratory/Chest: chest wall non-tender, lungs clear Cardiovascular/Chest: normal peripheral pulses, normal rate Abdomen: normal bowel sounds, non tender Extremities: normal range of motion Labs: noted Imaging: reviewed Assessment and Recs: # Anemia of chronic disease due to underlying chronic medical issues, multifactorial v Gi bleed --> Anemia workup has been ordered, rule out gi bleed --> No evidence of hemolysis is noted, peripheral smear has been reviewed. --> Hgb goal >7. Transfuse prn. --> Epogen or iron at this time is not particularly indicated --> Medications have been reviewed --> low threshold for gi evaluation in case has occult + # Blighted ovum with incomplete miscarraige --> as per urogynecology physician recs Dr. Scott # Inevitable --> supportive/expectant management # Vaginal bleeding and worsening abdominal pain in the setting of a blighted ovum . # Dehydration given ivf Appreciate consultation and dw Inder Boothe MD Nov 12, 2019 14:31
--- NOTE | 2019-11-12 16:53 | NUR ---
NURSE NOTES: Patient states she had moderate bleeding with clots present. Unwitnessed by nurse. MD Scott made aware.
--- NOTE | 2019-11-12 19:14 | NUR ---
HAND-OFF: Report given to ORLIN Mahan.
--- NOTE | 2019-11-12 20:00 | NUR ---
NURSE NOTES: Patient received in bed, aaox4, family at bedside. No acute distress at this time. Reports pain 6/10, patient verbalized pain is tolerable. Instructed to call for assistance, verbalized understanding, call light in reach. Will continue to monitor.
--- NOTE | 2019-11-12 23:30 | History and Physical Report ---
DATE OF ADMISSION: 11/12/2019 HISTORY OF PRESENT ILLNESS: The patient admitted for incomplete miscarriage, intractable pain. The patient complained of some abdominal cramps. The patient came in with symptoms that lasting for about a day. The patient was diagnosed with blighted ovum and she was scheduled to return one week later for evaluation and repeat blood testing. However, the day before admission, the patient noted some spotting, which developed into lower pelvic cramping and diffuse abdominal bleeding and she felt dizzy, lightheaded with chest pain, short of breath, and near syncope and came to the ER and was admitted for incomplete miscarriage and reports some diarrhea as well. Denies nausea or vomiting. PAST MEDICAL HISTORY: Asthma. PAST SURGICAL HISTORY: None. ALLERGIES: None. FAMILY HISTORY: Noncontributory. SOCIAL HISTORY: Denies history of smoking, alcohol, or illegal drugs. MEDICATIONS: None. FAMILY HISTORY: Noncontributory. REVIEW OF SYSTEMS: HEENT: Denies headaches. RESPIRATORY: Denies shortness of breath. Denies cough. CARDIOVASCULAR: Denies chest pain. No orthopnea. GASTROINTESTINAL: Denies nausea, vomiting, or diarrhea. EXTREMITIES: Denies pain. CENTRAL NERVOUS SYSTEM: Denies change in speech pattern. PHYSICAL EXAMINATION: VITAL SIGNS: Temperature is 97.9, pulse is 81, and blood pressure 108/70. HEENT: PERRLA. NECK: Supple. No lymphadenopathy. CHEST: Clear to auscultation. CARDIOVASCULAR: Regular rate and rhythm. No murmurs or extra sound. GASTROINTESTINAL: Soft, nontender, and nondistended. No organomegaly. EXTREMITIES: No edema. Sensory intact to light touch. Reflexes equal on both sides. Moves all four extremities. LABORATORY DATA: WBC of 7.3, hemoglobin of 12.2, and platelets of 292,000. Sodium 138, potassium 3.9, BUN of 11, creatinine 0.7. ASSESSMENT AND PLAN: Incomplete miscarriage. Gynecology team has been consulted by the ER doctor and I also consulted Dr. Inder Lopez. I will wait for the assessment of the patient. Nenita Faustin M.D. DR: VELMA JOB#: [id number] CC:
[2019-11-13] VITALS (7 sets, daily range): BP systolic 91–116; BP diastolic 55–71
--- NOTE | 2019-11-13 02:45 | History and Physical Report ---
DATE OF ADMISSION: 11/12/2019 REASON FOR ADMISSION: This is a 24-year-old female who presented to the emergency room complaining of vaginal bleeding. She denied fever or chills. Denies any other complaints. A consultation was requested from [employer] service to further evaluate the patient's gynecological symptoms. HISTORY OF PRESENT ILLNESS: The patient was reportedly seen at [facility]. She underwent an ultrasound examination which revealed blighted ovum. The patient also followed with her sewer contractor. She presented to the emergency room at [facility] secondary to vaginal bleeding, passage of blood clots and passage of tissue. She denies any fever or chills. She denies any other complaints at this time. PAST DEPARTMENT CHAIR HISTORY: Unremarkable. PAST MEDICAL HISTORY: Unremarkable. PAST SURGICAL HISTORY: Unremarkable. MEDICATIONS: None. PHYSICAL EXAMINATION: GENERAL: She is afebrile with stable vital signs. HEENT: Normocephalic and atraumatic. ABDOMEN: Soft, nontender, nondistended. EXTREMITIES: No cyanosis, no clubbing. PELVIC: [id number] lochia is noted. LABORATORY AND DIAGNOSTIC DATA: The patient underwent ultrasound evaluation, please refer to the ultrasound for detail. Quantitative beta HCG was also drawn. ASSESSMENT AND PLAN: This is a 24-year-old female with history of blighted ovum, now with apparent incomplete . I discussed with the patient regarding the findings on ultrasound. I discussed with the patient and her mother, who was present at bedside, regarding postoperative management of what appears to be in the lower uterine segment could be regarding dilatation and curettage. The patient does not desire to proceed with the above and she wants to continue with expectant management. Risks and possible complications, options of management have been explained to her in great detail. She understands and desires expectant management. Quantitative beta-HCG and CBC is drawn on the patient for followup should the patient desire to continue with expectant management. She was advised to follow in one week for her followup care. Christiano Scott M.D. DR: Alfred JOB#: [id number] CC:
[2019-11-13 07:10] LABS: BASOPHILS % (AUTO) 0.8 % (0.0-2.0); EOSINOPHILS % (AUTO) 4.9 % (0.0-3.0); HEMATOCRIT 31.4 % (37.0-47.0); HEMOGLOBIN 10.4 G/DL (12.0-16.0); LYMPHOCYTES % (AUTO) 36.2 % (20.0-45.0); MEAN CORPUSCULAR VOLUME 81 FL (80-99); MONOCYTES % (AUTO) 6.3 % (1.0-10.0); NEUTROPHILS % (AUTO) 51.8 % (45.0-75.0); PLATELET COUNT 236 K/UL (150-450); RED BLOOD COUNT 3.89 M/UL (4.20-5.40); RED CELL DISTRIBUTION WIDTH 12.7 % (11.6-14.8); WHITE BLOOD COUNT 5.8 K/UL (4.8-10.8)
--- NOTE | 2019-11-13 07:39 | NUR ---
NURSE NOTES: Patine asleep; on room air, no sing of distress and shortness of breath; IV Right AC 20G flushes well; side rails up x2, breaks engaged, bed at lowest position; call light within reach; will keep monitoring.
[2019-11-13 07:45] LABS: ALANINE AMINOTRANSFERASE 16 U/L (12-78); ALBUMIN 2.8 G/DL (3.4-5.0); ALBUMIN/GLOBULIN RATIO 0.7 (1.0-2.7); ALKALINE PHOSPHATASE 48 U/L (46-116); ANION GAP 7 mmol/L (5-15); ASPARTATE AMINO TRANSFERASE 16 U/L (15-37); BILIRUBIN,TOTAL 0.2 MG/DL (0.2-1.0); BLOOD UREA NITROGEN 8 mg/dL (7-18); CALCIUM 8.7 MG/DL (8.5-10.1); CARBON DIOXIDE 26 MMOL/L (21-32); CHLORIDE 106 MMOL/L (98-107); CREATININE 0.6 MG/DL (0.55-1.30); POTASSIUM 4.2 MMOL/L (3.5-5.1); SODIUM 139 MMOL/L (136-145)
--- NOTE | 2019-11-13 07:52 | NUR ---
HAND-OFF: Report given to Ryan ORDAZ.
--- NOTE | 2019-11-13 09:00 | NUR ---
NURSE NOTES: Patient asked for fruits; I call kitchen and fruits provided to patient;
--- NOTE | 2019-11-13 10:58 | NUR ---
*-* INSURANCE *-* ALL AVAILABLE CLINICALS HAVE BEEN FAXED TO: [employer]AIN Ruelas REF# [id number] NO CM ASSIGNED YET PH#[phone] EXT [id number] FAX# [phone] REVIEWS/CLINICALS
--- NOTE | 2019-11-13 11:08 | Hematology/Onc Progress Note ---
Assessment/Plan Assessment/Plan Assessment and Recs: # Anemia of chronic disease due to underlying chronic medical issues, multifactorial v Gi bleed --> Anemia workup has been ordered, rule out gi bleed --> No evidence of hemolysis is noted, peripheral smear has been reviewed. --> Hgb goal >7. Transfuse prn. --> Epogen or iron at this time is not particularly indicated --> Medications have been reviewed --> low threshold for gi evaluation in case has occult + # Blighted ovum with incomplete miscarraige --> as per historical society director recs Dr. Scott # Inevitable --> supportive/expectant management # Vaginal bleeding and worsening abdominal pain in the setting of a blighted ovum . # Dehydration given ivf Appreciate consultation and dw Rn Subjective Constitutional: Denies: no symptoms, chills, fever, malaise, weakness, other HEENT: Denies: no symptoms, eye pain, blurred vision, tearing, double vision, ear pain, ear discharge, nose pain, nose congestion, throat pain, throat swelling, mouth pain, mouth swelling, other Cardiovascular: Denies: no symptoms, chest pain, edema, irregular heart rate, lightheadedness, palpitations, syncope, other Respiratory: Denies: no symptoms, cough, shortness of breath, SOB with excertion, SOB at rest, sputum, wheezing, other Gastrointestinal/Abdominal: Denies: no symptoms, abdomen distended, abdominal pain, black stools, tarry stools, blood in stool, constipated, diarrhea, difficulty swallowing, nausea, poor appetite, poor fluid intake, rectal bleeding , vomiting, other Genitourinary: Denies: no symptoms, burning, discharge, frequency, flank pain, hematuria, incontinence, pain, urgency, other Neurologic/Psychiatric: Denies: no symptoms, anxiety, depressed, emotional problems, headache, numbness, paresthesia, pre-existing deficit, seizure, tingling, tremors, weakness, other Allergies: Uncoded Allergies: PINEAPPLES (Allergy, Severe, 08/16/19) TONGUE SWELLING Subjective 11/13: labs are noted, no bleeding, bhcg lower Objective Objective Current Medications Medications (Trade) Dose Ordered Sig/Jozef Route PRN Reason Start Time Stop Time Status Last Admin Dose Admin Acetaminophen (Tylenol) 650 mg Q4H PRN ORAL Mild Pain/Temp > 100.5 11/12/19 14:00 12/12/19 13:59 11/13/19 08:41 Last 24 Hour Vital Signs Date Time Temp Pulse Resp B/P (MAP) Pulse Ox O2 Delivery O2 Flow Rate FiO2 11/13/19 09:11 97.0 11/13/19 09:00 Room Air 11/13/19 08:00 97.0 83 16 91/55 (67) 96 11/13/19 04:19 98.0 78 16 115/64 (81) 98 11/13/19 00:00 98.2 82 16 98/57 (71) 98 11/12/19 21:00 Room Air 11/12/19 20:00 98.8 87 18 114/56 (75) 98 11/12/19 16:03 98.6 78 20 134/90 (105) 97 11/12/19 13:27 97.7 75 20 103/66 (78) 96 11/12/19 12:35 Room Air 11/12/19 11:58 98.0 86 19 116/63 98 Room Air 11/12/19 10:15 97.9 81 19 108/70 98 Room Air 11/12/19 07:41 98.0 85 17 112/70 97 Room Air 11/12/19 05:17 97.7 82 16 118/70 97 Room Air 11/12/19 03:53 97.7 11/12/19 03:13 97.7 86 18 113/73 96 Room Air 11/12/19 03:13 86 18 Room Air 11/12/19 02:55 97.7 86 18 113/73 (86) 96 Room Air Intake and Output 11/12/19 11/13/19 19:00 07:00 Intake Total 3080 ml 300 ml Balance 3080 ml 300 ml Intake Oral 1080 ml 300 ml IV Total 2000 ml # Voids 2 3 Labs Test 11/12/19 04:14 11/12/19 05:55 11/13/19 06:15 White Blood Count 7.3 K/UL (4.8-10.8) 5.8 K/UL (4.8-10.8) Red Blood Count 4.61 M/UL (4.20-5.40) 3.89 M/UL (4.20-5.40) Hemoglobin 12.2 G/DL (12.0-16.0) 10.4 G/DL (12.0-16.0) Hematocrit 36.9 % (37.0-47.0) 31.4 % (37.0-47.0) Mean Corpuscular Volume 80 FL (80-99) 81 FL (80-99) Mean Corpuscular Hemoglobin 26.5 PG (27.0-31.0) 26.6 PG (27.0-31.0) Mean Corpuscular Hemoglobin Concent 33.1 G/DL (32.0-36.0) 33.0 G/DL (32.0-36.0) Red Cell Distribution Width 12.4 % (11.6-14.8) 12.7 % (11.6-14.8) Platelet Count 292 K/UL (150-450) 236 K/UL (150-450) Mean Platelet Volume 8.2 FL (6.5-10.1) 8.1 FL (6.5-10.1) Neutrophils (%) (Auto) 59.9 % (45.0-75.0) 51.8 % (45.0-75.0) Lymphocytes (%) (Auto) 28.2 % (20.0-45.0) 36.2 % (20.0-45.0) Monocytes (%) (Auto) 7.7 % (1.0-10.0) 6.3 % (1.0-10.0) Eosinophils (%) (Auto) 3.5 % (0.0-3.0) 4.9 % (0.0-3.0) Basophils (%) (Auto) 0.8 % (0.0-2.0) 0.8 % (0.0-2.0) Sodium Level 138 MMOL/L (136-145) 139 MMOL/L (136-145) Potassium Level 3.9 MMOL/L (3.5-5.1) 4.2 MMOL/L (3.5-5.1) Chloride Level 104 MMOL/L (98-107) 106 MMOL/L (98-107) Carbon Dioxide Level 23 MMOL/L (21-32) 26 MMOL/L (21-32) Anion Gap 11 mmol/L (5-15) 7 mmol/L (5-15) Blood Urea Nitrogen 11 mg/dL (7-18) 8 mg/dL (7-18) Creatinine 0.7 MG/DL (0.55-1.30) 0.6 MG/DL (0.55-1.30) Estimat Glomerular Filtration Rate > 60 mL/min (>60) > 60 mL/min (>60) Glucose Level 98 MG/DL (74-106) 86 MG/DL (74-106) Calcium Level 8.9 MG/DL (8.5-10.1) 8.7 MG/DL (8.5-10.1) Total Bilirubin 0.1 MG/DL (0.2-1.0) 0.2 MG/DL (0.2-1.0) Aspartate Amino Transf (AST/SGOT) 17 U/L (15-37) 16 U/L (15-37) Alanine Aminotransferase (ALT/SGPT) 23 U/L (12-78) 16 U/L (12-78) Alkaline Phosphatase 66 U/L (46-116) 48 U/L (46-116) Total Protein 8.4 G/DL (6.4-8.2) 7.1 G/DL (6.4-8.2) Albumin 3.3 G/DL (3.4-5.0) 2.8 G/DL (3.4-5.0) Globulin 5.1 g/dL 4.3 g/dL Albumin/Globulin Ratio 0.6 (1.0-2.7) 0.7 (1.0-2.7) Lipase 147 U/L (73-393) Human Chorionic Gonadotropin, Quant 4416 mIU/mL (1-6) Urine Color Red Urine Appearance Turbid Urine pH 7 (4.5-8.0) Urine Specific Hewitt 1.010 (1.005-1.035) Urine Protein 4+ (NEGATIVE) Urine Glucose (UA) Negative (NEGATIVE) Urine Ketones Negative (NEGATIVE) Urine Blood 5+ (NEGATIVE) Urine Nitrite Negative (NEGATIVE) Urine Bilirubin Negative (NEGATIVE) Urine Urobilinogen Normal MG/DL (0.0-1.0) Urine Leukocyte Esterase Negative (NEGATIVE) Urine RBC Tntc /HPF (0 - 2) Urine WBC 0-2 /HPF (0 - 2) Urine Squamous Epithelial Cells None /LPF (NONE/OCC) Urine Bacteria Few /HPF (NONE) Height (Feet): 5 Height (Inches): 1.00 Weight (Pounds): 180 Objective Physical Exam General Appearance: A+O x3, NAD HEENT: normocephalic, atraumatic Neck: non-tender, normal alignment Respiratory/Chest: chest wall non-tender, lungs clear Cardiovascular/Chest: normal peripheral pulses, normal rate Abdomen: normal bowel sounds, non tender Extremities: normal range of motion Inder Lopez MD Nov 13, 2019 11:08
--- NOTE | 2019-11-13 17:27 | NUR ---
CASE MANAGEMENT:INITIAL REVIEW 24 YR OLD FEMALE AMBULATORY TO ED FROM HOME CC;ABDOMINAL PAIN SI;INEVITABLE 98.0 86 19 108/70 96% ON RA HGC [id number] PELVIS US - No gestational sac demonstrated. Endometrial thickening and heterogeneously could indicate normal findings versus retained products of conception in the setting of spontaneous . Other possibilities include very early , ectopic IS;ZOFRAN IV IVF NS BOLUS MORPHINE IV RHO IV TORADOL IV MISOPROSTOL IV ADMITTED TO MED SURG MED SURG STATUS DCP; HOME
--- NOTE | 2019-11-13 19:23 | NUR ---
HAND-OFF: Report given to ORLIN Stevenson.
--- NOTE | 2019-11-13 20:00 | NUR ---
NURSE NOTES: Patient received in bed, awake and alert. Asked if she can have medication stronger than tylenol but not stronger than morphine. Paged Dr. Faustin, awaiting call back.
--- NOTE | 2019-11-13 20:30 | NUR ---
NURSE NOTES: No response from Dr. Faustin. Attempted to call Dr. Scott. Received call from Dr. Hill who stated to call Dr. Faustin for any other management. Message left again to Dr. Faustin.
--- NOTE | 2019-11-13 21:00 | NUR ---
NURSE NOTES: Dr. Faustin ordered to call Dr. Lauren. Spoke with Dr. Lauren and explain patient's condition. Received order for percocet 5/325 1 tab po q4hr. patient made aware and will administer as prescribed.
[2019-11-13] MEDS: oxyCODONE HCL/Acetaminophen 5/325mg ORAL PRN (21:14)
--- NOTE | 2019-11-13 21:21 | General Progress Note ---
Assessment/Plan Problem List: (1) Urinary tract infection ICD Codes: N39.0 - Urinary tract infection, site not specified SNOMED: 35059553 (2) Inevitable ICD Codes: O03.9 - Complete or unspecified spontaneous without complication SNOMED: 81657707 Status: progressing Assessment/Plan: abdominal cramp roll bucker is already consulted dc planning if cleared by roll bucker Subjective Allergies: Uncoded Allergies: PINEAPPLES (Allergy, Severe, 08/16/19) TONGUE SWELLING Subjective abdominal cramps Objective Last 24 Hour Vital Signs Date Time Temp Pulse Resp B/P (MAP) Pulse Ox O2 Delivery O2 Flow Rate FiO2 11/13/19 16:18 97.3 11/13/19 16:00 97.3 93 17 110/71 (84) 98 11/13/19 12:00 97.7 84 16 104/59 (74) 95 11/13/19 09:00 Room Air 11/13/19 08:00 97.0 83 16 91/55 (67) 96 11/13/19 04:19 98.0 78 16 115/64 (81) 98 11/13/19 00:00 98.2 82 16 98/57 (71) 98 Intake and Output 11/12/19 11/13/19 19:00 07:00 Intake Total 3080 ml 300 ml Balance 3080 ml 300 ml Intake Oral 1080 ml 300 ml IV Total 2000 ml # Voids 2 3 Laboratory Tests 11/13/19 06:15: White Blood Count 5.8, Red Blood Count 3.89L, Hemoglobin 10.4L, Hematocrit 31.4L , Mean Corpuscular Volume 81, Mean Corpuscular Hemoglobin 26.6L, Mean Corpuscular Hemoglobin Concent 33.0, Red Cell Distribution Width 12.7, Platelet Count 236, Mean Platelet Volume 8.1, Neutrophils (%) (Auto) 51.8, Lymphocytes (% ) (Auto) 36.2, Monocytes (%) (Auto) 6.3, Eosinophils (%) (Auto) 4.9H, Basophils (%) (Auto) 0.8, Sodium Level 139, Potassium Level 4.2, Chloride Level 106, Carbon Dioxide Level 26, Anion Gap 7, Blood Urea Nitrogen 8, Creatinine 0.6, Estimat Glomerular Filtration Rate > 60, Glucose Level 86, Calcium Level 8.7, Total Bilirubin 0.2, Aspartate Amino Transf (AST/SGOT) 16, Alanine Aminotransferase (ALT/SGPT) 16, Alkaline Phosphatase 48, Total Protein 7.1, Albumin 2.8L, Globulin 4.3, Albumin/Globulin Ratio 0.7L Height (Feet): 5 Height (Inches): 1.00 Weight (Pounds): 180 Nenita Faustin MD Nov 13, 2019 21:21
[2019-11-14] MEDS: oxyCODONE HCL/Acetaminophen 5/325mg ORAL PRN ×3 (03:00→21:26)
[2019-11-14 04:00] VITALS: BP 103/58
--- NOTE | 2019-11-14 07:27 | NUR ---
HAND-OFF: Report given to Joselyn ORDAZ.
--- NOTE | 2019-11-14 07:43 | NUR ---
NURSE NOTES: Patient alert x4; on room air, no sing of distress and shortness of breath; no sing of chest pain; IV Right-AC 20G flushes well; side rails up x2, breaks engaged, call light within reach; will keep monitoring.
[2019-11-14 08:00] VITALS: BP 85/46
--- NOTE | 2019-11-14 08:45 | Hematology/Onc Progress Note ---
Assessment/Plan Assessment/Plan Assessment and Recs: # Anemia of chronic disease due to underlying chronic medical issues, multifactorial v Gi bleed --> Anemia workup has been ordered, rule out gi bleed --> No evidence of hemolysis is noted, peripheral smear has been reviewed. --> Hgb goal >7. Transfuse prn. --> Epogen or iron at this time is not particularly indicated --> Medications have been reviewed --> low threshold for gi evaluation in case has occult + # Blighted ovum with incomplete miscarraige --> as per inspector machined parts recs Dr. Scott # Inevitable --> supportive/expectant management # Vaginal bleeding and worsening abdominal pain in the setting of a blighted ovum . --> improved # Dehydration given ivf Appreciate consultation and carlos Rn Subjective Constitutional: Denies: no symptoms, chills, fever, malaise, weakness, other HEENT: Denies: no symptoms, eye pain, blurred vision, tearing, double vision, ear pain, ear discharge, nose pain, nose congestion, throat pain, throat swelling, mouth pain, mouth swelling, other Respiratory: Denies: no symptoms, cough, shortness of breath, SOB with excertion, SOB at rest, sputum, wheezing, other Gastrointestinal/Abdominal: Denies: no symptoms, abdomen distended, abdominal pain, black stools, tarry stools, blood in stool, constipated, diarrhea, difficulty swallowing, nausea, poor appetite, poor fluid intake, rectal bleeding , vomiting, other Genitourinary: Denies: no symptoms, burning, discharge, frequency, flank pain, hematuria, incontinence, pain, urgency, other Neurologic/Psychiatric: Denies: no symptoms, anxiety, depressed, emotional problems, headache, numbness, paresthesia, pre-existing deficit, seizure, tingling, tremors, weakness, other Endocrine: Denies: no symptoms, excessive sweating, flushing, intolerance to cold, intolerance to heat, increased hunger, increased thirst, increased urine, unexplained weight gain, unexplained weight loss, other Hematologic/Lymphatic: Denies: no symptoms, anemia, easy bleeding, easy bruising, adenopathy, other Allergies: Uncoded Allergies: PINEAPPLES (Allergy, Severe, 08/16/19) TONGUE SWELLING Subjective 11/13: labs are noted, no bleeding, bhcg lower 11/14: labs noted, no bleeding, [facility] Objective Current Medications Medications (Trade) Dose Ordered Sig/Jozef Route PRN Reason Start Time Stop Time Status Last Admin Dose Admin Acetaminophen (Tylenol) 650 mg Q4H PRN ORAL Mild Pain/Temp > 100.5 11/12/19 14:00 12/12/19 13:59 11/13/19 15:48 Oxycodone/ Acetaminophen (Percocet 5-325) 1 tab Q4H PRN ORAL pain 4-10 11/13/19 21:15 11/20/19 21:14 11/14/19 03:00 Last 24 Hour Vital Signs Date Time Temp Pulse Resp B/P (MAP) Pulse Ox O2 Delivery O2 Flow Rate FiO2 11/14/19 04:00 97.3 68 15 103/58 (73) 98 11/13/19 23:33 97.9 84 16 102/59 (73) 99 11/13/19 21:00 Room Air 11/13/19 20:00 98.1 98 16 116/57 (76) 98 11/13/19 16:18 97.3 11/13/19 16:00 97.3 93 17 110/71 (84) 98 11/13/19 12:00 97.7 84 16 104/59 (74) 95 11/13/19 09:00 Room Air 11/13/19 08:00 97.0 83 16 91/55 (67) 96 11/13/19 04:19 98.0 78 16 115/64 (81) 98 11/13/19 00:00 98.2 82 16 98/57 (71) 98 11/12/19 21:00 Room Air 11/12/19 20:00 98.8 87 18 114/56 (75) 98 11/12/19 16:03 98.6 78 20 134/90 (105) 97 11/12/19 13:27 97.7 75 20 103/66 (78) 96 11/12/19 12:35 Room Air 11/12/19 11:58 98.0 86 19 116/63 98 Room Air 11/12/19 10:15 97.9 81 19 108/70 98 Room Air Intake and Output 11/13/19 11/14/19 19:00 07:00 Intake Total 250 ml 800 ml Balance 250 ml 800 ml Intake Oral 250 ml 800 ml # Voids 4 4 Labs Test 11/12/19 04:14 11/12/19 05:55 11/13/19 06:15 White Blood Count 7.3 K/UL (4.8-10.8) 5.8 K/UL (4.8-10.8) Red Blood Count 4.61 M/UL (4.20-5.40) 3.89 M/UL (4.20-5.40) Hemoglobin 12.2 G/DL (12.0-16.0) 10.4 G/DL (12.0-16.0) Hematocrit 36.9 % (37.0-47.0) 31.4 % (37.0-47.0) Mean Corpuscular Volume 80 FL (80-99) 81 FL (80-99) Mean Corpuscular Hemoglobin 26.5 PG (27.0-31.0) 26.6 PG (27.0-31.0) Mean Corpuscular Hemoglobin Concent 33.1 G/DL (32.0-36.0) 33.0 G/DL (32.0-36.0) Red Cell Distribution Width 12.4 % (11.6-14.8) 12.7 % (11.6-14.8) Platelet Count 292 K/UL (150-450) 236 K/UL (150-450) Mean Platelet Volume 8.2 FL (6.5-10.1) 8.1 FL (6.5-10.1) Neutrophils (%) (Auto) 59.9 % (45.0-75.0) 51.8 % (45.0-75.0) Lymphocytes (%) (Auto) 28.2 % (20.0-45.0) 36.2 % (20.0-45.0) Monocytes (%) (Auto) 7.7 % (1.0-10.0) 6.3 % (1.0-10.0) Eosinophils (%) (Auto) 3.5 % (0.0-3.0) 4.9 % (0.0-3.0) Basophils (%) (Auto) 0.8 % (0.0-2.0) 0.8 % (0.0-2.0) Sodium Level 138 MMOL/L (136-145) 139 MMOL/L (136-145) Potassium Level 3.9 MMOL/L (3.5-5.1) 4.2 MMOL/L (3.5-5.1) Chloride Level 104 MMOL/L (98-107) 106 MMOL/L (98-107) Carbon Dioxide Level 23 MMOL/L (21-32) 26 MMOL/L (21-32) Anion Gap 11 mmol/L (5-15) 7 mmol/L (5-15) Blood Urea Nitrogen 11 mg/dL (7-18) 8 mg/dL (7-18) Creatinine 0.7 MG/DL (0.55-1.30) 0.6 MG/DL (0.55-1.30) Estimat Glomerular Filtration Rate > 60 mL/min (>60) > 60 mL/min (>60) Glucose Level 98 MG/DL (74-106) 86 MG/DL (74-106) Calcium Level 8.9 MG/DL (8.5-10.1) 8.7 MG/DL (8.5-10.1) Total Bilirubin 0.1 MG/DL (0.2-1.0) 0.2 MG/DL (0.2-1.0) Aspartate Amino Transf (AST/SGOT) 17 U/L (15-37) 16 U/L (15-37) Alanine Aminotransferase (ALT/SGPT) 23 U/L (12-78) 16 U/L (12-78) Alkaline Phosphatase 66 U/L (46-116) 48 U/L (46-116) Total Protein 8.4 G/DL (6.4-8.2) 7.1 G/DL (6.4-8.2) Albumin 3.3 G/DL (3.4-5.0) 2.8 G/DL (3.4-5.0) Globulin 5.1 g/dL 4.3 g/dL Albumin/Globulin Ratio 0.6 (1.0-2.7) 0.7 (1.0-2.7) Lipase 147 U/L (73-393) Human Chorionic Gonadotropin, Quant 4416 mIU/mL (1-6) Urine Color Red Urine Appearance Turbid Urine pH 7 (4.5-8.0) Urine Specific [place] 1.010 (1.005-1.035) Urine Protein 4+ (NEGATIVE) Urine Glucose (UA) Negative (NEGATIVE) Urine Ketones Negative (NEGATIVE) Urine Blood 5+ (NEGATIVE) Urine Nitrite Negative (NEGATIVE) Urine Bilirubin Negative (NEGATIVE) Urine Urobilinogen Normal MG/DL (0.0-1.0) Urine Leukocyte Esterase Negative (NEGATIVE) Urine RBC Tntc /HPF (0 - 2) Urine WBC 0-2 /HPF (0 - 2) Urine Squamous Epithelial Cells None /LPF (NONE/OCC) Urine Bacteria Few /HPF (NONE) Height (Feet): 5 Height (Inches): 1.00 Weight (Pounds): 180 Objective Physical Exam General Appearance: A+O x3, NAD HEENT: normocephalic, atraumatic Neck: non-tender, normal alignment Respiratory/Chest: chest wall non-tender, lungs clear Cardiovascular/Chest: normal peripheral pulses, normal rate Abdomen: normal bowel sounds, non tender Extremities: normal range of motion Inder Lopez MD Nov 14, 2019 08:45
--- NOTE | 2019-11-14 09:12 | Consultation ---
History of Present Illness General Date patient seen: Nov 14, 2019 Chief Complaint: Present Illness Allergies: Uncoded Allergies: PINEAPPLES (Allergy, Severe, 08/16/19) TONGUE SWELLING Medication History Scheduled Cephalexin* (Keflex*), 500 MG ORAL EVERY 6 HOURS Doxycycline Monohydrate* (Doxycycline Monohydrate*), 100 MG ORAL Q12H Ibuprofen* (Motrin*), 600 MG ORAL THREE TIMES A DAY Nitrofurantoin Monohyd/M-Cryst* (Macrobid 100 Mg*), 100 MG ORAL EVERY 12 HOURS Phenazopyridine Hcl* (Pyridium*), 200 MG ORAL THREE TIMES A DAY No.137/Iron/Folic Acd ( Vitamin Tablet), 1 EACH PO DAILY Scheduled PRN Acetaminophen* (Tylenol Extra Strength*), 2 TAB ORAL Q8H PRN for Prn Headache/ Temp > 101 Patient History Healthcare decision maker Resuscitation status Full Code Advanced Directive on File Physical Exam Last 24 Hour Vital Signs Date Time Temp Pulse Resp B/P (MAP) Pulse Ox O2 Delivery O2 Flow Rate FiO2 11/14/19 08:00 97.7 73 16 85/46 (59) 95 11/14/19 04:00 97.3 68 15 103/58 (73) 98 11/13/19 23:33 97.9 84 16 102/59 (73) 99 11/13/19 21:00 Room Air 11/13/19 20:00 98.1 98 16 116/57 (76) 98 11/13/19 16:18 97.3 11/13/19 16:00 97.3 93 17 110/71 (84) 98 11/13/19 12:00 97.7 84 16 104/59 (74) 95 Intake and Output 11/13/19 11/14/19 19:00 07:00 Intake Total 250 ml 800 ml Balance 250 ml 800 ml Intake Oral 250 ml 800 ml # Voids 4 4 Height (Feet): 5 Height (Inches): 1.00 Weight (Pounds): 180 Medications Current Medications Medications (Trade) Dose Ordered Sig/Jozef Route PRN Reason Start Time Stop Time Status Last Admin Dose Admin Acetaminophen (Tylenol) 650 mg Q4H PRN ORAL Mild Pain/Temp > 100.5 11/12/19 14:00 12/12/19 13:59 2/12/20 15:48 Oxycodone/ Acetaminophen (Percocet 5-325) 1 tab Q4H PRN ORAL pain 4-10 11/13/19 21:15 11/20/19 21:14 11/14/19 03:00 Assessment/Plan Assessment/Plan: (1) Blighted ovum with incomplete miscarriage (2) Inevitable (3) Abdominal and pelvic pain seen dictated Tino Philippe Nov 14, 2019 09:12
--- NOTE | 2019-11-14 11:12 | NUR ---
CHARGE NURSE NOTE: Spoke with (helix coil winder). He said patient declined I&D procedure, she needs to follow up with primary doctor, and her own helix coil winder. cleared the patient for discharge. Pt said that her family member will pick her up after 6pm and bring her house daniel.
[2019-11-14 12:00] VITALS: BP 85/64
[2019-11-14 16:00] VITALS: BP 118/73
--- NOTE | 2019-11-14 16:30 | NUR ---
NURSE NOTES: Patient ask for discharge pain medication; I communicated FRANCISCA Philippe regarding the pain medication patient is asking to have upon discharge; FILLING OPERATOR Jose Martin stated that patient can get over the counter pain medication, however wont prescript narcotic pain medication upon discharge; I notified FILLING OPERATOR message to patient and patine said she is not ready to go home before they check her on Ultrasound; Charge nurseAshanti talk to patient and communicated MD Faustin; discharge order canceled and new order for US received;
--- NOTE | 2019-11-14 16:33 | NUR ---
*-* INSURANCE *-* ALL AVAILABLE CLINICALS HAVE BEEN FAXED TO: ZAIN Ruelas REF# [id number] NO CM ASSIGNED YET PH#[phone] EXT [id number] FAX# [phone] REVIEWS/CLINICALS
--- NOTE | 2019-11-14 19:40 | NUR ---
HAND-OFF: Report given to ORLIN Lagos.
--- NOTE | 2019-11-14 19:45 | Consultation ---
DATE OF CONSULTATION: 11/14/2019 PAIN MANAGEMENT CONSULTATION CONSULTING PHYSICIAN: Rigo Lauren M.D. REFERRING PHYSICIAN: Nenita Faustin M.D. PHYSICIAN FASHION CONSULTANT SELLING: TYSON Miller CHIEF COMPLAINT: Abdominal and pelvic pain. HISTORY OF PRESENT ILLNESS: This is a 24-year-old female, who is being seen on the med/surg floor of [facility] for initial pain management consultation. The patient was admitted under the care of Dr. Faustin due to abdominal and pelvic pain, found to have nonviable ovum and has passed this miscarriage. Due to this, the patient has been having severe cramping, rating at 10/10. At this time, it is 3/10 and was started on Percocet 5/325 one tablet every four hours as needed for severe pain as per Dr. Lauren and she has been comfortable on this regimen. We were consulted so the patient would have adequate pain control while here in the hospital. PAST MEDICAL HISTORY: Denies. PAST SURGICAL HISTORY: Denies. SOCIAL HISTORY: Denies smoking tobacco, drinking alcohol, or drug abuse. ALLERGIES: No known drug allergies. MEDICATIONS: Keflex, doxycycline, Motrin, Macrobid, Pyridium, vitamin, Tylenol extra-strength. REVIEW OF SYSTEMS: Denies rash, fever, chills, sweating, dizziness, blurred vision, sore throat, change in weight. No shortness of breath or chest pain. No nausea, vomiting, diarrhea, blood in the stool or urine. No dysuria. PHYSICAL EXAMINATION: GENERAL: Alert, awake, and oriented. VITAL SIGNS: Blood pressure 85/46, heart rate 72, oxygen saturation 95%, respiratory rate 16, temperature is 97.5 degrees Fahrenheit. HEENT: PERRLA. NECK: Range of motion is full in all directions. No tenderness to paracervical muscles. No adenopathy. LUNGS: Decreased breath sounds bilaterally. HEART: S1 and S2 regular. ABDOMEN: Tenderness to palpation. BACK: Range of motion is decreased in flexion and extension. EXTREMITIES: Upper and lower extremity range of motion is full in all directions. No cyanosis. No clubbing. No edema. Sensory is intact. Reflexes are not obtainable. No adenopathy. ASSESSMENT: This is a 24-year-old female with blighted ovum with incomplete miscarriage, inevitable , abdomen and pelvic pain. The patient will be continued on Percocet here in the hospital. The patient was discussed with Dr. Lauren and Dr. Lauren concurred. We will follow the patient. Thank you very much for the courtesy of this consultation. Rigo Lauren M.D. TYSON Miller DR: Lavonne JOB#: [id number] CC: MYRON
[2019-11-14 20:00] VITALS: BP 108/64
--- NOTE | 2019-11-14 21:11 | General Progress Note ---
Assessment/Plan Problem List: (1) Urinary tract infection ICD Codes: N39.0 - Urinary tract infection, site not specified SNOMED: 55245762 (2) Inevitable ICD Codes: O03.9 - Complete or unspecified spontaneous without complication SNOMED: 27630953 Status: progressing Assessment/Plan: abdominal cramp air conditioning specialist is already consulted will dc once cleared by air conditioning specialist pelvic u/s ordered Subjective ROS Limited/Unobtainable: Yes Allergies: Uncoded Allergies: PINEAPPLES (Allergy, Severe, 08/16/19) TONGUE SWELLING Subjective abdominal cramps Objective Last 24 Hour Vital Signs Date Time Temp Pulse Resp B/P (MAP) Pulse Ox O2 Delivery O2 Flow Rate FiO2 11/14/19 20:00 97.9 85 16 108/64 (79) 100 11/14/19 16:00 97.7 73 17 118/73 (88) 98 11/14/19 15:18 97.5 11/14/19 12:00 97.5 94 17 85/64 (71) 96 11/14/19 09:00 Room Air 11/14/19 08:00 97.7 73 16 85/46 (59) 95 11/14/19 04:00 97.3 68 15 103/58 (73) 98 11/13/19 23:33 97.9 84 16 102/59 (73) 99 Intake and Output 11/13/19 11/14/19 19:00 07:00 Intake Total 250 ml 800 ml Balance 250 ml 800 ml Intake Oral 250 ml 800 ml # Voids 4 4 Height (Feet): 5 Height (Inches): 1.00 Weight (Pounds): 180 Neck: supple Cardiovascular: normal rate Respiratory/Chest: lungs clear Abdomen: soft Nenita Faustin MD Nov 14, 2019 21:11
--- NOTE | 2019-11-14 21:30 | NUR ---
NURSE NOTES: Pt is in bed, awake and alert. No acute distress noted. Vitals stable. Vaginal ultra sound was taken. Pt refused to go home last shift according to previous shift RN. Pt states she will go home tomorrow. Bed locked low in position,side rails up and call light within reach. Pt will be monitored.
[2019-11-15] VITALS: BP 99/64
[2019-11-15] MEDS: oxyCODONE HCL/Acetaminophen 5/325mg ORAL PRN ×3 (01:40→15:46)
[2019-11-15 04:00] VITALS: BP 98/55
--- NOTE | 2019-11-15 07:10 | NUR ---
HAND-OFF: Report given to ORLIN Meier.Informed to incoming RN that patient has an active discharge order.
--- NOTE | 2019-11-15 07:15 | NUR ---
NURSE NOTES: Received report from ORLIN Pompa. Patient A&Ox4. In bed, resting comfortably. On room air, no signs of distress or labored breathing. IV intact, patent, and saline locked. Bed in lowest position with call light in reach. Will continue with plan of care.
[2019-11-15 08:00] VITALS: BP 98/58
--- NOTE | 2019-11-15 09:07 | General Progress Note ---
Assessment/Plan Assessment/Plan: (1) Blighted ovum with incomplete miscarriage (2) Inevitable (3) Abdominal and pelvic pain Patient to be continued on Percocet while here in the hospital. D/w Dr. Lauren and he concurred. Subjective Date patient seen: Nov 15, 2019 Time patient seen: 07:00 - am Allergies: Uncoded Allergies: PINEAPPLES (Allergy, Severe, 08/16/19) TONGUE SWELLING Subjective REVIEW OF SYSTEMS: Denies rash, fever, chills, sweating, dizziness, blurred vision, sore throat, change in weight. No shortness of breath or chest pain. No nausea, vomiting, diarrhea, blood in the stool or urine. No dysuria. SUBJECTIVE: Patient is in bed and and reports 5/10 pain on the Percocet. She has no new complaints at this time Objective Last 24 Hour Vital Signs Date Time Temp Pulse Resp B/P (MAP) Pulse Ox O2 Delivery O2 Flow Rate FiO2 11/15/19 04:00 97.8 66 16 98/55 (69) 98 11/15/19 00:00 98.8 76 16 99/64 (76) 98 11/14/19 21:00 Room Air 11/14/19 20:00 97.9 85 16 108/64 (79) 100 11/14/19 16:00 97.7 73 17 118/73 (88) 98 11/14/19 15:18 97.5 11/14/19 12:00 97.5 94 17 85/64 (71) 96 Intake and Output 11/14/19 11/15/19 19:00 07:00 Intake Total 600 ml 620 ml Balance 600 ml 620 ml Intake Oral 600 ml 620 ml # Voids 5 2 Height (Feet): 5 Height (Inches): 1.00 Weight (Pounds): 180 Objective GENERAL: Alert, awake, and oriented. LUNGS: Decreased breath sounds bilaterally. HEART: S1 and S2 regular. ABDOMEN: Tenderness to palpation. EXTREMITIES: No cyanosis. No clubbing. No edema. NEURO: No changes. Tino Philippe Nov 15, 2019 09:07
--- NOTE | 2019-11-15 10:43 | Diagnostic Imaging Report ---
Indication: Vaginal bleeding. Positive . Concern for ectopic . Technique: Grayscale and duplex Doppler imaging of the pelvis performed utilizing a transabdominal scan and endovaginal scan. Comparison: None Findings: The study was performed in 2 sessions. The initial examination was performed 11/14/2019 at 18:40 which consisted of a transabdominal scan. This was followed by endovaginal examination the following morning 11/14/2019 at 09:02. The examination shows no evidence of intrauterine . The endometrium is best seen on the endovaginal scan and measures 6 mm and appears uniform in thickness and echogenicity. The uterus is normal in size and contour. Both ovaries are demonstrated and show dopplerable blood flow. There is no free fluid or adnexal mass identified. Cervical nabothian cysts are noted. The uterus measures 9.3 x 6 x 5.4 cm. Endometrial thickness is 7.7 mm. Right ovary 2.2 x 1.9 x 2.4 cm. Left ovary 2.4 x 1.3 x 2.4 cm. IMPRESSION: Negative pelvic ultrasound. No IUP. No peritoneal fluid or adnexal mass. Quantitative beta-hCG of approximately 4792 noted with subsequent slight decline of 4416. Differential considerations include spontaneous and occult early ectopic . Continued clinical monitoring is recommended.
[2019-11-15 12:00] VITALS: BP 103/53
--- NOTE | 2019-11-15 16:00 | NUR ---
NURSE NOTES: Attempted to get clarification for discharge/clearance from Dr. Scott, since second OB ultrasound was done. MD didn't speak to RN directly, but passed along message through office staff, named Nicanor that orders were given previous day concerning discharge and that ultrasound results should be printed to show primary MD during follow up appointment. Will notify primary MD of this.
--- NOTE | 2019-11-15 17:00 | NUR ---
NURSE NOTES: Patient is having nausea and vomiting. Patient is on hands and knees rocking back and forth in excruciating pain. Notified primary MD about patient's condition and concern that it is unsafe for patient to be discharged. Orders received. Will carry out.
[2019-11-15] MEDS ORDERED: Morphine Sulfate 4mg/ml Inj (IV USE ONLY) IVP PRN ×2 (17:30→17:45)
[2019-11-15] MEDS ORDERED: Morphine Sulfate 2mg/ml Inj(IV/IM USE ONLY) IVP PRN ×3 (17:32→18:00)
--- NOTE | 2019-11-15 17:42 | NUR ---
NURSING ASSOCIATE PROFESSOR OF ECONOMICS NOTE: Report from Renea, primary RN for patient that she is having difficulty reaching OB Md Dr. Scott. I called office number [phone] and the recorded message said to call emergency line for nutritional assistant at [phone]. I left a message on this phone number asking for return call as soon as possible and provided Renea's name and direct phone number to [id number]
--- NOTE | 2019-11-15 18:06 | NUR ---
[employer] NOTES RECIEVED A CALL FROM DR. REA REQUESTING PT BE TRANSFERRED FOR A HIGHER LEVEL OF CARE OBGYN SERVICES. PLACED A CALL TO [facility]. SPOKE WITH REGINO PROVIDED CLINICALS. PER REGINO GARCIA TO CALL HOSPITALIST FOR A HANDOFF AND POSSIBLE ACCEPTANCE. MADE AWARE. MD TO CALL DR RAMIRES @ [phone]. REGINO [phone](P) [phone] (F) DR RAMIRES [phone] Addendum: 11/15/19 at 1849 by MAIKEL SWANSON RN RN RECEIVED CALL FROM REGINO, PT ACCEPTED AND IS ON THE BOARD FOR A BED. DR RAMIRES IS THE ACCEPTING DOCTOR. REGINO WILL CALL THE FLOOR WHEN BED AVAILABLE. PROVIDED REGINO WITH THE FLOOR NUMBER. PRIMARY NURSE MADE AWARE.
--- NOTE | 2019-11-15 18:13 | NUR ---
TRANSFER NOTE CALL MADE TO [facility]SF[facility] [phone]. SPOKE WITH KAYLEE. TRANSFER CENTER [facility] IS CURRENTLY AT CAPACITY[facility] WILL CONFIRM WITH OB TO INQUIRE IF THEY WOULD BE ABLE TO ACCEPT PATIENT. REQUESTS FOR CLINICALS TO BE FAXED TO [phone] CALL MADE TO JERSON TOBIAS. SPOKE WITH NURSING CRIMPING MACHINE OPERATOR FOR METAL WHO STATES [facility] MUST FIND AN ACCEPTING MD PRIOR TO TRANSFERRING PATIENT.
--- NOTE | 2019-11-15 19:00 | NUR ---
NURSE NOTES: In correlation with doctor's order to transfer, Per [employer] correctional case records supervisor, Millicent, patient will be transferred to [facility] for more adequate obgyn services.
--- NOTE | 2019-11-15 19:30 | NUR ---
NURSE NOTES: RECEIVED PATIENT ORLIN SHARPE. PATIENT IS AWAKE, AAOX4, ON ROOM AIR, NO ACUTE DISTRESS NOTED. FAMILY MEMBERS AT BEDSIDE. PATIENT DENIES PAIN AT THE MOMENT, STATES THAT PAIN COMES INTERMITTENTLY IN LOWER PELVIS AREA, REPORTED MODERATE BLEEDING. IV ON RIGHT AC INTACT AND PATENT. BED IS LOCKED AND LOW, BED ALARMS ACTIVE, SIDE RAILS UP X2, AND CALL LIGHT IS WITHIN REACH. AWAITING FOR BELMAR PRES. TO FOLLOW UP WITH BED FOR TRANSFER. WILL CONTINUE TO MONITOR.
[2019-11-15 20:00] VITALS: BP 108/63
--- NOTE | 2019-11-15 20:21 | Hematology/Onc Progress Note ---
Assessment/Plan Assessment/Plan Assessment and Recs: # Anemia of chronic disease due to underlying chronic medical issues, multifactorial v Gi bleed --> Anemia workup has been reviewed --> No evidence of hemolysis is noted, peripheral smear has been reviewed. --> Hgb goal >7. Transfuse prn. --> Epogen or iron at this time is not particularly indicated --> Medications have been reviewed --> low threshold for gi evaluation in case has occult + # Blighted ovum with incomplete miscarriage --> as per milker machine recs Dr. Scott --> us: Negative pelvic ultrasound. No IUP. # Inevitable --> supportive/expectant management # Vaginal bleeding and worsening abdominal pain in the setting of a blighted ovum . --> improved # Dehydration given ivf Appreciate consultation and carlos Rn Subjective Allergies: Uncoded Allergies: PINEAPPLES (Allergy, Severe, 08/16/19) TONGUE SWELLING Subjective 11/13: labs are noted, no bleeding, bhcg lower 11/14: labs noted, no bleeding, carlos rn, supportive care 11/15: awake and alert, no acute distress, us negative Objective Objective Current Medications Medications (Trade) Dose Ordered Sig/Jozef Route PRN Reason Start Time Stop Time Status Last Admin Dose Admin Acetaminophen (Tylenol) 650 mg Q4H PRN ORAL Mild Pain/Temp > 100.5 11/12/19 14:00 12/12/19 13:59 11/13/19 15:48 Morphine Sulfate (Morphine Sulfate) 2 mg Q4H PRN IVP moderate pain 11/15/19 18:00 11/22/19 17:59 Morphine Sulfate (Morphine Sulfate) 4 mg Q4H PRN IVP severe pain 11/15/19 18:00 11/22/19 17:59 Oxycodone/ Acetaminophen (Percocet 5-325) 1 tab Q4H PRN ORAL pain 4-10 11/13/19 21:15 11/20/19 21:14 11/15/19 15:46 Last 24 Hour Vital Signs Date Time Temp Pulse Resp B/P (MAP) Pulse Ox O2 Delivery O2 Flow Rate FiO2 11/15/19 12:00 98.2 73 19 103/53 (70) 98 11/15/19 09:00 Room Air 11/15/19 08:00 97.7 85 18 98/58 (71) 99 11/15/19 04:00 97.8 66 16 98/55 (69) 98 11/15/19 00:00 98.8 76 16 99/64 (76) 98 11/14/19 21:00 Room Air 11/14/19 20:00 97.9 85 16 108/64 (79) 100 11/14/19 16:00 97.7 73 17 118/73 (88) 98 11/14/19 15:18 97.5 11/14/19 12:00 97.5 94 17 85/64 (71) 96 11/14/19 09:00 Room Air 11/14/19 08:00 97.7 73 16 85/46 (59) 95 11/14/19 04:00 97.3 68 15 103/58 (73) 98 11/13/19 23:33 97.9 84 16 102/59 (73) 99 11/13/19 21:00 Room Air Intake and Output 11/14/19 11/15/19 19:00 07:00 Intake Total 600 ml 620 ml Balance 600 ml 620 ml Intake Oral 600 ml 620 ml # Voids 5 2 Labs Test 11/13/19 06:15 White Blood Count 5.8 K/UL (4.8-10.8) Red Blood Count 3.89 M/UL (4.20-5.40) Hemoglobin 10.4 G/DL (12.0-16.0) Hematocrit 31.4 % (37.0-47.0) Mean Corpuscular Volume 81 FL (80-99) Mean Corpuscular Hemoglobin 26.6 PG (27.0-31.0) Mean Corpuscular Hemoglobin Concent 33.0 G/DL (32.0-36.0) Red Cell Distribution Width 12.7 % (11.6-14.8) Platelet Count 236 K/UL (150-450) Mean Platelet Volume 8.1 FL (6.5-10.1) Neutrophils (%) (Auto) 51.8 % (45.0-75.0) Lymphocytes (%) (Auto) 36.2 % (20.0-45.0) Monocytes (%) (Auto) 6.3 % (1.0-10.0) Eosinophils (%) (Auto) 4.9 % (0.0-3.0) Basophils (%) (Auto) 0.8 % (0.0-2.0) Sodium Level 139 MMOL/L (136-145) Potassium Level 4.2 MMOL/L (3.5-5.1) Chloride Level 106 MMOL/L (98-107) Carbon Dioxide Level 26 MMOL/L (21-32) Anion Gap 7 mmol/L (5-15) Blood Urea Nitrogen 8 mg/dL (7-18) Creatinine 0.6 MG/DL (0.55-1.30) Estimat Glomerular Filtration Rate > 60 mL/min (>60) Glucose Level 86 MG/DL (74-106) Calcium Level 8.7 MG/DL (8.5-10.1) Total Bilirubin 0.2 MG/DL (0.2-1.0) Aspartate Amino Transf (AST/SGOT) 16 U/L (15-37) Alanine Aminotransferase (ALT/SGPT) 16 U/L (12-78) Alkaline Phosphatase 48 U/L (46-116) Total Protein 7.1 G/DL (6.4-8.2) Albumin 2.8 G/DL (3.4-5.0) Globulin 4.3 g/dL Albumin/Globulin Ratio 0.7 (1.0-2.7) Height (Feet): 5 Height (Inches): 1.00 Weight (Pounds): 180 Objective Physical Exam General Appearance: A+O x3, NAD HEENT: normocephalic, atraumatic Neck: non-tender, normal alignment Respiratory/Chest: chest wall non-tender, lungs clear Cardiovascular/Chest: normal peripheral pulses, normal rate Abdomen: normal bowel sounds, non tender Extremities: normal range of motion Inder Lopez MD Nov 15, 2019 20:21
--- NOTE | 2019-11-15 21:18 | NUR ---
NURSE NOTES: PLACED CALL TO OLIVIA KOWALSKI TO FOLLOW UP ON PATIENT'S BED. SPOKE TO REGINO, FREIGHT DELIVERY DRIVER, AND WAS INFORMED THAT THERE'S NO BED AVAILABLE AT THE MOMENT. WILL CONTINUE TO FOLLOW UP.
[2019-11-16] VITALS: BP 111/69
[2019-11-16 04:00] VITALS: BP 96/48
--- NOTE | 2019-11-16 07:36 | NUR ---
NURSE NOTES: Received report from Sarah, RN. Patient in bed sleeping. On room air, no signs of distress or labored breathing. IV intact, patent, and saline locked. Will follow up with transfer to [facility].
--- NOTE | 2019-11-16 07:46 | NUR ---
HAND-OFF: Report given to ORLIN Meier.
[2019-11-16 08:00] VITALS: BP_SYST 101; BP_SYST 104; BP_DIAS 50; BP_DIAS 69
--- NOTE | 2019-11-16 11:41 | NUR ---
NURSE NOTES: RN spoke to Raven from [facility] admitting. She will call [facility] back.
[2019-11-16 12:00] VITALS: BP 121/81
--- NOTE | 2019-11-16 12:00 | NUR ---
NURSE NOTES: Received a call from Raven from [facility]. She said patient was accepted and bed number is 706. Will give report to [phone]. Dr. Faustin made aware and received discharge order.
--- NOTE | 2019-11-16 12:17 | NUR ---
NURSE NOTES: RN received a call from Raven, she said no is no assigned or accepting OB doctor @ [facility]. She wants nurse to call Dr. Mcmillan [phone]. Primary nurse made aware.
--- NOTE | 2019-11-16 12:47 | NUR ---
NURSE NOTES: Primary nurse talked to Dr. Mcmillan on the phone. Dr. Mcmillan wants to talk to Christiano Betancourt OB from [facility] to accept patient. clinic charge nurse talked to Dr. Faustin on the phone and relayed the situation. Dr. Faustin said Dr. Catsillo accepted patient. RN told Dr. Faustin that OB doctor needs to accept the patient to transfer the patient. Dr. Faustin will call Dr. Mcmillan and RN paged christiano Betancourt. Awaiting for return call.
--- NOTE | 2019-11-16 12:50 | NUR ---
NURSE NOTES: Received a call from Dr. Faustin and he said he called Dr. Scott's cell phone and left message to his voice mail with Dr. Mcmillan's phone number. Per Raven from [facility], patient can be transferred after Dr. Scott talk to Dr. Mcmillan.
[2019-11-16 14:10] LABS: BASOPHILS % (AUTO) 0.9 % (0.0-2.0); HEMATOCRIT 34.2 % (37.0-47.0); HEMOGLOBIN 11.1 G/DL (12.0-16.0); MEAN CORPUSCULAR VOLUME 81 FL (80-99); MONOCYTES % (AUTO) 8.2 % (1.0-10.0); NEUTROPHILS % (AUTO) 51.9 % (45.0-75.0); PLATELET COUNT 261 K/UL (150-450); RED BLOOD COUNT 4.22 M/UL (4.20-5.40); RED CELL DISTRIBUTION WIDTH 12.7 % (11.6-14.8); WHITE BLOOD COUNT 5.9 K/UL (4.8-10.8)
[2019-11-16] MEDS: Morphine Sulfate 4mg/ml Inj (IV USE ONLY) IVP PRN ×3 (14:34→23:34)
--- NOTE | 2019-11-16 14:58 | NUR ---
NURSE NOTES: Dr. Scott ordered labs WBC and Beta HCG quantitative. RN called back with results of labs and reiterated OB ultrasound results. [facility] as there is nothing they can do for patient for an acute care standpoint. Patient is cleared from OBGYN standpoint and is to be discharged home. Patient should follow up with primary OBGYN for any further concerns. Charge nurse aware. Will notify primary MD, Dr. Faustin.
--- NOTE | 2019-11-16 15:46 | General Progress Note ---
Assessment/Plan Problem List: (1) Urinary tract infection ICD Codes: N39.0 - Urinary tract infection, site not specified SNOMED: 53862701 (2) Inevitable ICD Codes: O03.9 - Complete or unspecified spontaneous without complication SNOMED: 72045375 Assessment/Plan: spoke w dr jesus aguilar apartment manager that saw this patient and he said u/s is negative and hcg is going down and there is no ectopic and he said patient is ready to go home and be dc and f/u w [facility] she refused d&c at [facility] dr aguilar recommended d&c and per dr aguilar she refused so not much we can offer for her w her refusal dr aguilar dc pt home w f/u w [facility] Subjective Allergies: Uncoded Allergies: PINEAPPLES (Allergy, Severe, 08/16/19) TONGUE SWELLING Subjective abdominal cramps Objective Last 24 Hour Vital Signs Date Time Temp Pulse Resp B/P (MAP) Pulse Ox O2 Delivery O2 Flow Rate FiO2 11/16/19 12:00 98.2 88 19 121/81 (94) 97 11/16/19 09:00 Room Air 11/16/19 08:00 99.0 77 17 101/50 (67) 100 11/16/19 04:00 98.1 75 17 96/48 (64) 97 11/16/19 00:00 98.4 72 18 111/69 (83) 100 11/15/19 21:00 Room Air 11/15/19 20:00 98.5 72 17 108/63 (78) 97 Intake and Output 11/15/19 11/16/19 19:00 07:00 Intake Total 600 ml Balance 600 ml Other 600 ml # Voids 3 2 Laboratory Tests 11/16/19 13:45: White Blood Count 5.9, Red Blood Count 4.22, Hemoglobin 11.1L, Hematocrit 34.2L , Mean Corpuscular Volume 81, Mean Corpuscular Hemoglobin 26.4L, Mean Corpuscular Hemoglobin Concent 32.6, Red Cell Distribution Width 12.7, Platelet Count 261, Mean Platelet Volume 8.1, Neutrophils (%) (Auto) 51.9, Lymphocytes (% ) (Auto) 35.0, Monocytes (%) (Auto) 8.2, Eosinophils (%) (Auto) 4.0H, Basophils (%) (Auto) 0.9, Human Chorionic Gonadotropin, Quant 236H Height (Feet): 5 Height (Inches): 1.00 Weight (Pounds): 180 Nenita Faustin MD Nov 16, 2019 15:46
--- NOTE | 2019-11-16 16:08 | NUR ---
NURSE NOTES: Spoke with primary MD, Dr. Faustin notifying him of clearance from Dr. Scott. Also mentioned that patient is reporting reduced bleeding and pain.
--- NOTE | 2019-11-16 19:29 | NUR ---
HAND-OFF: Report given to ORLIN Pang.
--- NOTE | 2019-11-16 19:55 | NUR ---
NURSE NOTES: Patient is in bed, awake and alert x4. No signs of distress or SOB. IV intact and patent. Bed locked and in lowest position. Call light within easy reach. Will continue to monitor the patient.
[2019-11-16 20:00] VITALS: BP 103/64
--- NOTE | 2019-11-16 23:45 | History and Physical Report ---
DATE OF ADMISSION: 11/12/2019 REASON FOR ADMISSION: This is a 24-year-old female who was admitted to the hospital secondary to vaginal bleeding. The patient with history of blighted ovum that was noted at [facility]. The patient was then presented to [facility] with complaint of bleeding and passage of blood clots and tissue. HISTORY OF PRESENT ILLNESS: The patient was seen and evaluated on admission. We discussed with the patient regarding dilatation and curettage. However, the patient refused and she decided to proceed with expectant management. The patient was continued to be followed at [facility]. A followup quantitative beta-hCG showed significant decrease from original level of 4700 to 236. Hemoglobin remained stable at 11. The patient underwent a second pelvic ultrasound, which essentially revealed negative pelvic ultrasound. No IUP. No free fluid. No adnexal mass. I discussed the case with admitting physician, Dr. Faustin. The patient can be discharged from the hospital. She should follow with her apprentice instrument technician on Monday for further followup and evaluation. Christiano Scott M.D. DR: Lakisha JOB#: [id number] CC:
[2019-11-17] VITALS: BP 115/63
--- NOTE | 2019-11-17 01:45 | Consultation ---
DATE OF CONSULTATION: 11/16/2019 GASTROENTEROLOGY CONSULTATION CONSULTING PHYSICIAN: Tee Burris M.D. CHIEF COMPLAINT: I was asked to see this patient by Dr. Nenita Barnes for evaluation of abdominal pain. HISTORY OF PRESENT ILLNESS: The patient is a 24-year-old woman, who recently had a miscarriage as she presented with vaginal bleeding. She has had imaging as well as declining beta hCGs, which is presumed to be miscarriage. She complains of persistent pelvic pain. She has had no previous gastrointestinal issues. PAST MEDICAL HISTORY: Otherwise negative. FAMILY HISTORY: Noncontributory. SOCIAL HISTORY: The patient had a miscarriage. REVIEW OF SYSTEMS: Otherwise negative. PHYSICAL EXAMINATION: GENERAL: An obese, woman, seen in her room. HEENT: Normocephalic and atraumatic. Sclerae anicteric. Oropharynx clear. NECK: Supple. CHEST: Clear to auscultation. CARDIOVASCULAR: Revealed a regular rate. ABDOMEN: Soft. PELVIC: There is pelvic tenderness in the right and left extensor quadrants without rebound or guarding. EXTREMITIES: Revealed no edema. LABORATORY DATA: Noted. White count was normal. ASSESSMENT: This patient presents with miscarriage and has already been seen by a repairer screen crusher. Her persistent pain is concerning, although there is no fever or white count to raise a concern further for infectious process. I have advised the patient to discuss her pain with the Gynecology team to see if there is any other liver disease or ways to treat her pre, which is presumed related to her miscarriage. RECOMMENDATIONS: Per above discussion and per orders written in the chart. Thank you for asking me to participate in the care of this patient. Tee Burris M.D. DR: RYAN JOB#: [id number] CC:
[2019-11-17 04:00] VITALS: BP 117/70
[2019-11-17] MEDS: Morphine Sulfate 4mg/ml Inj (IV USE ONLY) IVP PRN ×2 (06:11→10:19)
--- NOTE | 2019-11-17 07:15 | NUR ---
NURSE NOTES: Received report from ORLIN Pang. Patient in bed. On room air, no signs of distress or labored breathing. IV intact, patent, and saline locked. Reporting reduced pain. Bed in lowest position with call light in reach. Will carry out discharge for today.
--- NOTE | 2019-11-17 07:47 | NUR ---
HAND-OFF: Report given to ORLIN Meier.
[2019-11-17 08:00] VITALS: BP 93/46
--- NOTE | 2019-11-17 11:23 | General Progress Note ---
Assessment/Plan Assessment/Plan: (1) Blighted ovum with incomplete miscarriage (2) Inevitable (3) Abdominal and pelvic pain Patient to be continued on Percocet and Morphine. An RX for Percocet was written for patient in anticipation for discharge. D/w Dr. Lauren and he concurred. Subjective Date patient seen: Nov 17, 2019 Time patient seen: 10:00 - am Allergies: Uncoded Allergies: PINEAPPLES (Allergy, Severe, 08/16/19) TONGUE SWELLING Subjective REVIEW OF SYSTEMS: Denies rash, fever, chills, sweating, dizziness, blurred vision, sore throat, change in weight. No shortness of breath or chest pain. No nausea, vomiting, diarrhea, blood in the stool or urine. No dysuria. SUBJECTIVE: Patient reports that the pain has been stable. She had c/o severe pain and was started on Morphine 2-4mg IV Q4H PRN mod-severe pain. Now pain has been stable on the medications. Objective Last 24 Hour Vital Signs Date Time Temp Pulse Resp B/P (MAP) Pulse Ox O2 Delivery O2 Flow Rate FiO2 11/17/19 08:00 98.5 69 18 93/46 (62) 96 11/17/19 04:00 97.0 86 18 117/70 (86) 96 11/17/19 00:04 97.7 11/17/19 00:00 98.7 86 16 115/63 (80) 98 11/16/19 20:33 Room Air 11/16/19 20:00 97.7 76 16 103/64 (77) 98 11/16/19 12:00 98.2 88 19 121/81 (94) 97 Intake and Output 11/16/19 11/17/19 18:59 06:59 Intake Total 1200 ml Output Total 0 ml Balance 1200 ml 0 ml Other 1200 ml Output Urine Total 0 ml Stool Total 0 ml Laboratory Tests 11/16/19 13:45: White Blood Count 5.9, Red Blood Count 4.22, Hemoglobin 11.1L, Hematocrit 34.2L , Mean Corpuscular Volume 81, Mean Corpuscular Hemoglobin 26.4L, Mean Corpuscular Hemoglobin Concent 32.6, Red Cell Distribution Width 12.7, Platelet Count 261, Mean Platelet Volume 8.1, Neutrophils (%) (Auto) 51.9, Lymphocytes (% ) (Auto) 35.0, Monocytes (%) (Auto) 8.2, Eosinophils (%) (Auto) 4.0H, Basophils (%) (Auto) 0.9, Human Chorionic Gonadotropin, Quant 236H Height (Feet): 5 Height (Inches): 1.00 Weight (Pounds): 180 Objective GENERAL: Alert, awake, and oriented. LUNGS: Decreased breath sounds bilaterally. HEART: S1 and S2 regular. ABDOMEN: Tenderness to palpation. EXTREMITIES: No cyanosis. No clubbing. No edema. NEURO: No changes. Tino Philippe Nov 17, 2019 11:23
--- NOTE | 2019-11-17 11:36 | General Progress Note ---
Assessment/Plan Assessment/Plan: Assessment - s/p miscarriage - pelvic pain, presumed FILLING MIXER Recommendations - pain control - FILLING MIXER f/u Subjective Allergies: Uncoded Allergies: PINEAPPLES (Allergy, Severe, 08/16/19) TONGUE SWELLING Subjective pelvic pain better responds to meds Objective Last 24 Hour Vital Signs Date Time Temp Pulse Resp B/P (MAP) Pulse Ox O2 Delivery O2 Flow Rate FiO2 11/17/19 08:00 98.5 69 18 93/46 (62) 96 11/17/19 04:00 97.0 86 18 117/70 (86) 96 11/17/19 00:04 97.7 11/17/19 00:00 98.7 86 16 115/63 (80) 98 11/16/19 20:33 Room Air 11/16/19 20:00 97.7 76 16 103/64 (77) 98 11/16/19 12:00 98.2 88 19 121/81 (94) 97 Intake and Output 11/16/19 11/17/19 19:00 07:00 Intake Total 1200 ml Output Total 0 ml Balance 1200 ml 0 ml Other 1200 ml Output Urine Total 0 ml Stool Total 0 ml Laboratory Tests 11/16/19 13:45: White Blood Count 5.9, Red Blood Count 4.22, Hemoglobin 11.1L, Hematocrit 34.2L , Mean Corpuscular Volume 81, Mean Corpuscular Hemoglobin 26.4L, Mean Corpuscular Hemoglobin Concent 32.6, Red Cell Distribution Width 12.7, Platelet Count 261, Mean Platelet Volume 8.1, Neutrophils (%) (Auto) 51.9, Lymphocytes (% ) (Auto) 35.0, Monocytes (%) (Auto) 8.2, Eosinophils (%) (Auto) 4.0H, Basophils (%) (Auto) 0.9, Human Chorionic Gonadotropin, Quant 236H Height (Feet): 5 Height (Inches): 1.00 Weight (Pounds): 180 Objective WDWN NCAT supple CTA RR abd soft, lower abd TTP no edema Tee Burris MD Nov 17, 2019 11:36
--- NOTE | 2019-11-17 12:03 | Hematology/Onc Progress Note ---
Assessment/Plan Assessment/Plan Assessment and Recs: # Anemia of chronic disease due to underlying chronic medical issues, multifactorial v Gi bleed --> Anemia workup has been reviewed --> No evidence of hemolysis is noted, peripheral smear has been reviewed. --> Hgb goal >7. Transfuse prn. --> Epogen or iron at this time is not particularly indicated --> Medications have been reviewed --> low threshold for gi evaluation in case has occult + # Blighted ovum with incomplete miscarriage --> as per hair boiler recs Dr. Scott --> us: Negative pelvic ultrasound. No IUP. # Inevitable --> supportive/expectant management # Vaginal bleeding and worsening abdominal pain in the setting of a blighted ovum . --> improved # Dehydration given ivf Appreciate consultation and carlos Rn Subjective Allergies: Uncoded Allergies: PINEAPPLES (Allergy, Severe, 08/16/19) TONGUE SWELLING Subjective 11/13: labs are noted, no bleeding, bhcg lower 11/14: labs noted, no bleeding, carlos rn, supportive care 11/15: awake and alert, no acute distress, us negative 11/17: on med surg, no acute distress, hcg improved Objective Objective Current Medications Medications (Trade) Dose Ordered Sig/Jozef Route PRN Reason Start Time Stop Time Status Last Admin Dose Admin Acetaminophen (Tylenol) 650 mg Q4H PRN ORAL Mild Pain/Temp > 100.5 11/12/19 14:00 12/12/19 13:59 11/13/19 15:48 Morphine Sulfate (Morphine Sulfate) 2 mg Q4H PRN IVP moderate pain 11/15/19 18:00 11/22/19 17:59 11/16/19 01:05 Morphine Sulfate (Morphine Sulfate) 4 mg Q4H PRN IVP severe pain 11/15/19 18:00 11/22/19 17:59 11/17/19 10:19 Oxycodone/ Acetaminophen (Percocet 5-325) 1 tab Q4H PRN ORAL pain 4-10 11/13/19 21:15 11/20/19 21:14 11/15/19 15:46 Last 24 Hour Vital Signs Date Time Temp Pulse Resp B/P (MAP) Pulse Ox O2 Delivery O2 Flow Rate FiO2 11/17/19 09:00 Room Air 11/17/19 08:00 98.5 69 18 93/46 (62) 96 11/17/19 04:00 97.0 86 18 117/70 (86) 96 11/17/19 00:04 97.7 11/17/19 00:00 98.7 86 16 115/63 (80) 98 11/16/19 20:33 Room Air 11/16/19 20:00 97.7 76 16 103/64 (77) 98 11/16/19 12:00 98.2 88 19 121/81 (94) 97 11/16/19 09:00 Room Air 11/16/19 08:00 99.0 77 17 101/50 (67) 100 11/16/19 04:00 98.1 75 17 96/48 (64) 97 11/16/19 00:00 98.4 72 18 111/69 (83) 100 11/15/19 21:00 Room Air 11/15/19 20:00 98.5 72 17 108/63 (78) 97 Intake and Output 11/16/19 11/17/19 19:00 07:00 Intake Total 1200 ml Output Total 0 ml Balance 1200 ml 0 ml Other 1200 ml Output Urine Total 0 ml Stool Total 0 ml Labs Test 11/16/19 13:45 White Blood Count 5.9 K/UL (4.8-10.8) Red Blood Count 4.22 M/UL (4.20-5.40) Hemoglobin 11.1 G/DL (12.0-16.0) Hematocrit 34.2 % (37.0-47.0) Mean Corpuscular Volume 81 FL (80-99) Mean Corpuscular Hemoglobin 26.4 PG (27.0-31.0) Mean Corpuscular Hemoglobin Concent 32.6 G/DL (32.0-36.0) Red Cell Distribution Width 12.7 % (11.6-14.8) Platelet Count 261 K/UL (150-450) Mean Platelet Volume 8.1 FL (6.5-10.1) Neutrophils (%) (Auto) 51.9 % (45.0-75.0) Lymphocytes (%) (Auto) 35.0 % (20.0-45.0) Monocytes (%) (Auto) 8.2 % (1.0-10.0) Eosinophils (%) (Auto) 4.0 % (0.0-3.0) Basophils (%) (Auto) 0.9 % (0.0-2.0) Human Chorionic Gonadotropin, Quant 236 mIU/mL (1-6) Height (Feet): 5 Height (Inches): 1.00 Weight (Pounds): 180 Objective Physical Exam General Appearance: A+O x3, NAD HEENT: normocephalic, atraumatic Neck: non-tender, normal alignment Respiratory/Chest: chest wall non-tender, lungs clear Cardiovascular/Chest: normal peripheral pulses, normal rate Abdomen: normal bowel sounds, non tender Extremities: normal range of motion Inder Lopez MD Nov 17, 2019 12:03
--- NOTE | 2019-11-17 14:00 | NUR ---
NURSE NOTES: Patient discharged home via private vehicle with friend. IV and ID band removed. Discharge protocol followed.
--- NOTE | 2019-11-19 10:59 | Discharge Summary ---
Discharge Summary Discharge Summary _ DATE OF ADMISSION: 11/12/2019 DATE OF DISCHARGE: 11/17/2019 DISCHARGED BY: Dr. Faustin REASON FOR ADMISSION: 24 years old female with past medical history of mild asthma, presented for evaluation of possible miscarriage with vaginal bleeding and abdominal pain in the setting of blighted ovum , diagnosed last week. Upon evaluation vital signs were stable. Hemoglobin 12.2, hematocrit 36.9 , no leukocytosis ; stable electrolytes and renal parameters . Glucose 98 , stable LFT . hCG 4792. Obstetric ultrasound revealed no gestational sac. Endometrial thickening and heterogeneity could indicate normal finding versus retained products of conception in the setting of spontaneous . Other possibilities include very early or ectopic . In ED patient started on IV fluids , received analgesic and antiemetic , and admitted for further management. CONSULTANTS: GENERAL DOC Dr Scott GI specialist Dr. Burris pain specialist Dr. Lauren record systems analyst/oncologist Dr. Lopez [facility] COURSE: Patient admitted to medical surgical floor. Patient was on the IV hydration. Hemoglobin and hematocrit were closely monitored. GENERAL DOC seen patient and discussed findings of ultrasound with the patient and her mother , who was present at the bedside. Treatment option and management were discussed with the patient . Patient desired not to proceed with the dilatation and curettage and wants to continue with expectant management. Pain management was addressed as per pain specialist. Per GI specialist pelvic pain was presumed to be of OB/ CARDIAC SPECIALIST origin. Symptomatic treatment provided. Anemia was due to underlying chronic medical issue , and was multifactorial. Serial hCG were monitored; trended down to 236 upon discharge. Hemoglobin and hematocrit were closely monitored and prior to discharge hemoglobin 11.1, hematocrit 34.2. Repeated obstetric ultrasound on 11/14 was negative. No intrauterine . No peritoneal fluid . No adnexal mass. GENERAL DOC specialist cleared patient for discharge . Patient to follow-up with her outpatient customer support professional on Monday for further follow-up and evaluation FINAL DIAGNOSES: Blighted ovum with incomplete miscarriage Vaginal bleeding Anemia of chronic disease Pelvic pain presumed to be of CARDIAC SPECIALIST origin Dehydration DISCHARGE MEDICATIONS: See Medication Reconciliation list. DISCHARGE INSTRUCTIONS: Patient was discharged home. Follow-up with a primary care provider in 1 week. I have been assigned to dictate discharge summary for this account. I was not involved in the patient's management. Yasmeen Stockton NP Nov 19, 2019 10:59
== END 2019-11-17 14:00 | disposition home or self-care (01) | DRG 779 ==
LOC: EMR 03:07 → EDBEDREQ 11:03 → 4E 11:21
DX: O03.4 Incomplete spontaneous abortion without complication (principal); O03.38 Urinary tract infection following incomplete spontaneous abortion; O02.0 Blighted ovum and nonhydatidiform mole; E86.0 Dehydration; R10.2 Pelvic and perineal pain; D63.8 Anemia in other chronic diseases classified elsewhere
CPT/HCPCS: 36415; 76801; 76817; 76856; 80053; 81003; 83690; 84702; 85025; 86850; 86900; 86901; 96361; 96374; 96375; 96376; 99285; J2405; J7030